=== PATIENT | female | born 1970 | race Caucasian/White ===

== ENCOUNTER → 2021-12-16 09:15 | Outpatient (BNVA) | payer OTHER, SELFPAY | PROVIDERS: Family Provider Family Medicine; PCP Family Medicine Adult Medicine; Referring Provider Family Medicine Adult Medicine; Visit Provider Podiatrist Foot & Ankle Surgery | DX: M72.2 Plantar fascial fibromatosis (principal); M24.572 Contracture, left ankle; M24.571 Contracture, right ankle; B35.1 Tinea unguium | CPT/HCPCS: 73630 ==

== ENCOUNTER 2021-12-16 13:57 | Outpatient (CLI) | payer OTHER, SELFPAY | END 2021-12-16 13:58 | disposition home or self-care (01) | LOC: SPT 13:59 | PROVIDERS: Family Provider Family Medicine; PCP Family Medicine Adult Medicine; Visit Provider Podiatrist Foot & Ankle Surgery | DX: Z46.89 Encounter for fitting and adjustment of other specified devices (principal); M72.2 Plantar fascial fibromatosis | CPT/HCPCS: 97760; L4397 ==

== ENCOUNTER 2022-02-24 11:53 | Day surgery (SDC) | payer OTHER, SELFPAY ==
[2022-02-23 14:50] VITALS: BMI 28.1
[2022-02-24 12:13] VITALS: BP 143/82; PULSE 66; RESP 16; TEMP 36.1; O2SAT 97
[2022-02-24] MEDS: CELEcoxib 200 mg Capsule 400 MG PO (12:38)
[2022-02-24] MEDS: gabapentin 300 mg Capsule PO (12:39)
[2022-02-24] MEDS: sodium chloride 0.9% 1,000 ML 30 ML IV (12:39)
--- NOTE | 2022-02-24 13:16 | ANES.PREANE2 ---
Pre-Anesthetic Assessment Height/Weight: Height 1.7 m Weight 81.647 kg Temp Pulse Resp BP Pulse Ox O2 Del Method 97 F L 66 16 143/82 97 02/24/22 12:13 02/24/22 12:13 02/24/22 12:13 02/24/22 12:13 02/24/22 12:13 02/24/22 12:17 Preop Diagnosis: Right foot plantar fasciosis Operation Date: 02/24/22 14:05 Proposed Procedures p Right foot endoscopic plantar fasciotomy CPT 07993 M72.2(Right) - Sinan Gonzales DPM Familial anesthetic complications: None Was Beta Albert taken within 24 hours: N/A Was Clonidine taken within 24 hours: N/A Last intake: Intake Last Liquid Date 02/23/22 Last Liquid Time 20:30 Last Solid Date 02/23/22 Last Solid Time 20:30 Social Tobacco and No alcohol Exam alert, oriented x 3, clear to auscultation bilaterally and regular rate & rhythm Airway Mallampati: Class II Dentition: chipped Neuropsych Anxiety Anesthetic Plan ASA status: 2 Anesthesia: MAC Risk of > 500 ml blood loss (7ml/kg in children): No Medications/Allergies Home Medications Medication Instructions Recorded Confirmed Last Taken Type citalopram 20 mg tablet (Celexa) 20 mg PO DAILY PRN mental health 08/18/21 02/23/22 02/23/22 Rx #90 tabs hydroxyzine HCl 25 mg tablet 25 mg PO .hs PRN anxiety/sleep #90 08/18/21 02/23/22 02/23/22 Rx tabs night splint #1 ea 12/16/21 02/23/22 Unknown Rx hydrocodone 5 mg-acetaminophen 325 1 tab PO Q6H PRN pain 3 days #12 02/24/22 Unknown Rx mg tablet tabs Allergies Allergy/AdvReac Type Severity Reaction Status Date / Time No Known Allergies Allergy Verified 02/23/22 14:50 Current Medications Generic Name Dose Route Start Last Admin Trade Name Freq PRN Reason Stop Dose Admin Sodium Chloride 1,000 mls @ 30 mls/hr 02/24/22 12:15 02/24/22 12:39 Sodium Chloride 0.9% IV 02/25/22 12:14 30 mls/hr .Q24H LIA Administration PFSH Anesthesia Medical History Anxiety Depression Heel pain, chronic Ulnar nerve neuropathy Family History Mother CAD (coronary artery disease) Grandmother Dementia Other Gout Hyperlipidemia Hypertension Social History Smoking and tobacco status: current every day smoker Alcohol intake: never Marital status: Single Current occupational status: employed Data Anesthesia Cardiac Studies: No Data to Display
--- NOTE | 2022-02-24 14:03 | W.PM.OPSUD ---
Surgery/Procedure H&P Update DATE OF PROCEDURE: February 24, 2022 DATE H&P PERFORMED: 02/09/22 CHANGES TO PREVIOUS DOCUMENTATION: no changes PREOP DIAGNOSIS: Right foot plantar fasciosis PLANNED PROCEDURE: Operation Date: 02/24/22 14:05 Proposed Procedures p Right foot endoscopic plantar fasciotomy CPT 28727 M72.2(Right) - Sinan Gonzales DPM
[2022-02-24] MEDS: ceFAZolin 2,000 MG in sodium chloride 0.9% (plus) 50 ML 100 MG IV (14:16)
[2022-02-24 14:52] VITALS: BP 110/64; PULSE 59; RESP 14; TEMP 36.7; O2SAT 97
[2022-02-24 14:55] VITALS: BP 111/66; PULSE 57; RESP 12; O2SAT 98
[2022-02-24 15:00] VITALS: BP 120/72; PULSE 62; RESP 12; O2SAT 96
[2022-02-24 15:15] VITALS: BP 147/80; PULSE 56; RESP 18; TEMP 36.2; O2SAT 98
[2022-02-24] MEDS: HYDROcodone-acetaminophen 5-325 mg Tablet 1 TAB PO (15:53)
--- NOTE | 2022-02-24 15:57 | ANE.PACU2 ---
Inpatient post-anesthesia follow up: Airway intact: Yes Vital signs: Temperature 98.0 F Pulse Rate 62 Respiratory Rate 12 Blood Pressure 120/72 Pulse Oximetry 96 Oxygen Delivery Me thod Room Air Oxygen Flow Rate Fraction of Inspir ed Oxygen Hydration adequate: Yes Nausea and vomiting: No Pain level: 1 Mental status: Baseline
[2022-02-24 15:59] VITALS: BP 142/76; PULSE 58; RESP 18; TEMP 36.2; O2SAT 97
--- NOTE | 2022-02-24 18:15 | P.OP_ITS ---
Operative Report Date of procedure: February 25, 2022 Pre-op diagnosis: Preop Diagnosis Right foot plantar fasciosis Post-op diagnosis: Same Post-op findings: Thickened medial band of plantar fascial right foot Procedure done: Right foot endoscopic plantar fasciotomy CPT 52634 Implants: None Surgeon: Dr. Sinan Gonzales, Jasper.P.MAlicia Estimated blood loss: Less than 10 cc 14 minutes Complications: None Findings: See above Procedure: Patient is a 51-year-old female that has a history of right foot chronic plantar fasciitis. The patient has had the aforementioned chief complaint for some time. Conservative treatment measures have been attempted and the patient has opted for surgical intervention at this time. A lengthy discussion regarding the procedure, including risks and complications has been had with the patient and is noted in the recent clinic note. Written and verbal consent have been obtained. All patient questions have been answered to the patient?s satisfaction. No written or verbal guarantees have been given or implied. The patient has been NPO since midnight. The history has been reviewed and the history and physical is current. The signed consent was confirmed and placed in the patient chart. Patient imaging has been reviewed and is consistent with the diagnosis. Under mild sedation, the patient was brought into the operating room and placed on the table in the supine position. IV antibiotics were given by the anesthesia team as preoperative surgical prophylaxis. IV sedation was then performed by the anesthesiateam. A local field block was then performed using 0.5% Marcaine plain. A pneumatic tourniquet was then placed about the right ankle. The operative extremity was then prepped and draped in the usual fashion. The extremity was then elevated and exsanguinated before the tourniquet was inflated to 250 mmHg. After inflation, the following procedure was then perform ed. Attention was directed to the right foot where a stab incision was made to the medial aspect of the heel just distal to the medial calcaneal tubercle. Mosquito hemostat was used to bluntly dissect down to the level of the plantar fashion. Dissection was carried out on the inferior aspect of the plantar fashion across the plantar aspect of the foot. Next a soft tissue elevator was inserted into the incision to further free up the plantar soft tissues. Next a trocar and cannula were inserted into the medial incision along the inferior aspect of the plantar fascial. They were pushed through the foot and used to tent the skin on the lateral aspect of the foot. A #15 blade was then used to make a small stab incision over this area. The trocar and cannula were passed through and through. The trocar was removed and multiple contact applicators were passed to the cannula. Next the arthroscope was inserted into the lateral portal of the cannula. The plantar fascial was clearly visualized. A triangle blade was then inserted into the medial portal and used to puncture the medial band of the plantar fascia. Next, the retrograde hook was inserted into the medial incision and used to complete the resection of the medial band of the plantar fascial. The flexor digitorum brevis muscle belly was clearly visualized. The plantar fascia was noted to be thickened from longstanding plantar fasciitis. Camera was removed and the site was irrigated with copious amounts of sterile saline. The trocar was reinserted into the cannula and the trocar and cannula were removed together. Next, attention was directed to closure. Incision sites were closed with 4-0 nylon in horizontal mattress fashion. The tourniquet was let down good hyperemic response was noted to all digits of the right foot. The incision sites were dressed with Xeroform, 4 x 4 gauze, Kerlix and Coban. The patient tolerated the procedure and anesthesia well and without complication. The patient was transported from the operating room to the recovery room with vital signs stable and vascular status intact to all digits of the right foot. The patient was given both written and verbal instructions to remain weightbearing as tolerated to the operative extremity, to keep dressings/splint clean, dry and intact and to take pain medication as directed. The patient will follow-up in the outpatient setting at their scheduled appointment. The patient was discharged with my personal number and was instructed to call if any questions or issues should arise. They were discharged home once anesthesia criteria was met.
== END 2022-02-24 16:15 | disposition home or self-care (01) ==
PROVIDERS: Family Provider Family Medicine; PCP Family Medicine Adult Medicine; Visit Provider Podiatrist Foot & Ankle Surgery
PROC: (CPT 29893; principal; 2022-02-24 14:05)
DX: M72.2 Plantar fascial fibromatosis (principal); F17.210 Nicotine dependence, cigarettes, uncomplicated
CPT/HCPCS: 29893; J0690; J2250; J2704; J3010; J3490; J7030

== ENCOUNTER → 2022-07-07 16:06 | Outpatient (BNVA) | payer OTHER, SELFPAY | PROVIDERS: Family Provider Family Medicine; PCP Family Medicine Adult Medicine; Visit Provider Podiatrist Foot & Ankle Surgery | DX: M79.671 Pain in right foot (principal) | CPT/HCPCS: 73630 ==

== ENCOUNTER → 2022-08-03 13:42 | Outpatient (BNVA) | payer OTHER, SELFPAY | PROVIDERS: Family Provider Family Medicine; PCP Family Medicine Adult Medicine; Visit Provider Podiatrist Foot & Ankle Surgery | DX: M25.50 Pain in unspecified joint (principal) | CPT/HCPCS: 36415; 85651; 86140; 86160; 86162; 86200; 86235; 86255; 86376; 86431 ==

== ENCOUNTER → 2022-08-17 15:09 | Outpatient (BNVA) | payer OTHER, SELFPAY | PROVIDERS: Family Provider Family Medicine; PCP Family Medicine Adult Medicine; Visit Provider Family Medicine Adult Medicine | DX: M25.50 Pain in unspecified joint (principal); G56.20 Lesion of ulnar nerve, unspecified upper limb; M79.671 Pain in right foot; F41.9 Anxiety disorder, unspecified; M25.571 Pain in right ankle and joints of right foot; M79.672 Pain in left foot; F32.A Depression, unspecified | CPT/HCPCS: 80053; 84550; 85025 ==

== ENCOUNTER → 2022-11-07 08:21 | Outpatient (BNVA) | payer OTHER, SELFPAY | PROVIDERS: Family Provider Family Medicine; PCP Family Medicine Adult Medicine; Visit Provider Nurse Practitioner Family | DX: M25.532 Pain in left wrist; M25.531 Pain in right wrist; G89.29 Other chronic pain; M54.2 Cervicalgia | CPT/HCPCS: 73110 ==

== ENCOUNTER → 2023-07-20 11:34 | Outpatient (BNVA) | payer OTHER, SELFPAY | PROVIDERS: Family Provider Family Medicine; PCP Family Medicine Adult Medicine; Visit Provider Internal Medicine Rheumatology | DX: Z79.899 Other long term (current) drug therapy (principal); M19.90 Unspecified osteoarthritis, unspecified site; M45.6 Ankylosing spondylitis lumbar region | CPT/HCPCS: 36415; 72100; 72202; 73130; 80076; 82085; 82306; 82550; 82565; 83520; 85025; 85651; 86140; 86812 ==

== ENCOUNTER 2024-01-26 07:16 | Outpatient (CLI) | payer OTHER, SELFPAY ==
--- NOTE | 2024-01-26 07:23 | MM_ITS ---
WS: [id number] Bilateral screening 3D tomosynthesis digital mammogram, 01/26/2024 7:33 AM Clinical Data: SCREENING Comparison: None. Findings: There is an ill-defined area in the superior aspect of the right breast measuring 1.5 cm. It has an i ll-defined border and no associated calcifications. The left breast is normal. No spiculated masses or clustered calcifications are seen. There are no secondary signs of carcinoma . MM/MM scr BI tomosynthesis [id number] Impression: 1. Ill-defined area which may represent asymmetric breast tissue in the upper a spect of the right breast and recommend compression views in the MLO projection , ML image and ultrasound of the right breast. 2. The left breast is normal. BIRADS: 0 - Incomplete: Need additional imaging evaluation. FOLLOW UP: See Report DENSITY: There are scattered areas of fibroglandular density. The CAD spot checker was used
== END 2024-01-26 07:17 | disposition home or self-care (01) ==
LOC: RAD 07:16
PROVIDERS: Family Provider Family Medicine; PCP Family Medicine Adult Medicine; Visit Provider Nurse Practitioner Family
DX: Z12.31 Encounter for screening mammogram for malignant neoplasm of breast (principal); N63.12 Unspecified lump in the right breast, upper inner quadrant
CPT/HCPCS: 77063; 77067

== ENCOUNTER 2024-02-03 07:48 | Emergency (ER) | payer OTHER, SELFPAY ==
[2024-02-03] VITALS (9 sets, daily range): BP systolic 112–148; BP diastolic 73–96; PULSE 92–108; RESP 16–21; TEMP 36.8; O2SAT 94–100; BMI 34.4
--- NOTE | 2024-02-03 07:57 | XRR_ITS ---
PROCEDURE INFORMATION: Exam: XR Chest Exam date and time: 02/03/2024 8:20 AM Age: 53 years old Clinical indication: Cough and dyspnea; Additional info: Dyspnea/cough TECHNIQUE: Imaging protocol: Radiologic exam of the chest. Views: 1 view. COMPARISON: ES surgery / GI images 02/24/2022 2:58 PM FINDINGS: Lungs: Unremarkable. No consolidation. Pleural spaces: Unremarkable. No pleural effusion. No pneumothorax. Heart/Mediastinum: Unremarkable. No cardiomegaly. Bones/joints: Mild degenerative disease of the left acromioclavicular joint. XR/XR chest 1V portable [id number] IMPRESSION: No acute cardiopulmonary process.
--- NOTE | 2024-02-03 07:59 | ECG_ITS ---
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
[2024-02-03 08:25] LABS: Basophils # 0.1 10^3/uL (0.0-0.1); Basophils % 0.6 %; Eosinophils % 0.2 %; Hematocrit 48.4 % (36-47); Lymphocytes # 1.6 10^3/uL (0.8-4.8); Lymphocytes % 12.5 %; Mean Corpuscular HGB Conc 33.9 g/dL (30-55); Mean Corpuscular Hemoglobin 31.9 pg (27-33); Mean Corpuscular Volume 94.2 fl (85-98); Mean Platelet Volume 9.1 fL (7.4-10.4); Monocytes # 1.2 10^3/uL (0.2-0.9); Monocytes % 9.4 %; Neutrophils # 9.62 10^3/uL (1.8-7.7); Neutrophils % 76.7 %; Nucleated Red Blood Cells % 0 %; Platelet Count 378 10^3/cmm (157-399); Red Blood Count 5.14 10^6/uL (3.85-5.65); White Blood Count 12.52 10^3/uL (3.29-11.43)
[2024-02-03 08:48] LABS: Alanine Aminotransferase 19 U/L (0-33); Albumin Level 4.6 g/dL (3.5-5.2); Alkaline Phosphatase 113 U/L (35-105); Anion Gap 21.8 (5-19); Aspartate Amino Transferase 18 U/L (0-32); Blood Urea Nitrogen 16 mg/dL (6-20); Calcium 9.8 mg/dL (8.5-10.5); Carbon Dioxide 23 mmol/L (22-29); Chloride 93 mmol/L (98-107); Creatinine Clr Calc Pharmacy 72.6051; Globulin 3.6 g/dL (1.3-4.6); Glomerular Filtration Rate 52.2 mL/min (90-130); Glucose 141 mg/dL (65-115); Osmolality Calculated 284 mOsm/kg (285-295); Sodium 135 mmol/L (136-145); Total Bilirubin 0.9 mg/dL (0.15-1.2); Total Protein 8.2 g/dL (6.6-8.7)
[2024-02-03 08:54] LABS: Covid PCR NEGATIVE (Negative); Influenza A NEGATIVE (Negative); Influenza B NEGATIVE (Negative); Respiratory Syncytial Virus Ce NEGATIVE (Negative)
[2024-02-03 08:55] LABS: Potassium 2.8 mmol/L (3.5-5.1)
[2024-02-03 09:01] LABS: Bilirubin Urine 2+ (Negative); Blood Urine Negative (Negative); Glucose Urine UA Trace (Normal); Ketones Urine Trace (Negative); Leukocyte Esterase Urine 1+ (Negative); Nitrate Urine Positive (Negative); Protein Urine 3+ (Negative); Specific Gravity, Urine 1.027 (1.005-1.030); Urine Appearance Turbid (CLEAR); Urine Color Dark Yellow (Yellow); pH Urine 5.5 (5-7)
[2024-02-03 09:06] LABS: Add Urine Microscopic? YES; Bacteria Urine 4+ /hpf; Hyaline Casts Urine 380.27 /lpf; Squamous Epithelial Cell Urine 51-100 /hpf (0-5); WBC Urine 51-100 /hpf (0-5)
[2024-02-03 09:19] LABS: UA Slide Review UA Slide Review Perf
[2024-02-03 09:20] LABS: Mucus Urine 2+ /hpf; Trichomonas Urine 1+ /hpf
[2024-02-03 09:21] LABS: Add Urine Culture? No
[2024-02-03] MEDS: potassium chloride oral liq 20 mEq/15 mL UDC 60 MEQ PO (09:28)
[2024-02-03] MEDS: ondansetron 2 mg/ML SDV 2 mL 4 MG IVP (09:30)
[2024-02-03] MEDS: cefTRIAXone 2,000 mg SDV 2000 MG IVP (09:46)
--- NOTE | 2024-02-03 09:48 | ED_ITS ---
HPI - SOB/Dyspnea 2 General: Chief Complaint: Shortness of Breath/Dyspnea Stated Complaint: N/V, SOB Time Seen by Provider: 02/03/24 07:57 History of Present Illness: HPI Narrative: 53-year-old female who presents emergenc y room complaining of nausea vomiting little bit of shortness of breath been going on the last 2 days this morning when she woke up she was more short of breath subjective report of fever but has not tested it. Denies any chest or abdominal pain denies any flank pain no hemoptysis Associated symptoms: Deny abdominal pain, chest pain or fever(s) Related Data Home Medications Medication Instructions Recorded Confirmed gabapentin 100 mg capsule See Rx Instructions .Route 02/03/24 02/03/24 .COMPLEX chronic pain hydroxyzine HCl 25 mg tablet 12.5 - 25 mg PO Q6H PRN 02/03/24 02/03/24 anxiety/sleep Previous Rx's Medication Instructions Recorded night splint #1 ea 12/16/21 custom orthotics #1 ea 03/31/23 citalopram 40 mg tablet 40 mg PO DAILY mental health #90 09/25/23 tabs hydroxychloroquine 200 mg tablet 200 mg PO BID #180 tabs 11/27/23 leflunomide 20 mg tablet 20 mg PO DAILY #30 tabs 11/27/23 prednisone 5 mg tablet 5 mg PO BID #60 tabs 11/27/23 baclofen 10 mg tablet 10 mg PO TID PRN muscle spasm #90 01/15/24 tabs ciprofloxacin HCl 500 mg tablet 500 mg PO BID #14 tabs 02/03/24 (Cipro) ondansetron HCl 4 mg tablet 4 mg PO Q6H PRN nausea and 02/03/24 vomiting #20 tabs Allergies Allergy/AdvReac Type Severity Reaction Status Date / Time No Known Allergies Allergy Verified 02/03/24 08:02 Review of Systems 2 Const: Denies: fever(s) or chills Card: Denies: chest pain Resp: Denies: dyspnea GI: Denies: abdominal pain : Denies: dysuria, urinary frequency or urinary urgency Musc: Denies: neck pain or back pain Skin/Breast: Denies: rash PFSH ED 2 PFSH: Medical History Seronegative rheumatoid arthritis of both hands Cervical dysplasia Immunization counseling High risk medication use Inflammatory arthritis Muscle spasms of both lower extremities Arthralgia of multiple joints Onychomycosis Equinus contracture of right ankle Equinus contracture of left ankle Ulnar nerve neuropathy Heel pain, chronic Depression Anxiety Surgical History History of hysterectomy with bilateral oophorectomy H/O LEEP Family History Mother CAD (coronary artery disease) Grandmother Dementia Other Gout Hyperlipidemia Hypertension Social History Smoking and tobacco/nicotine status: never used tobacco/nicotine Alcohol intake: never Substance/Drug Use: current Substance/Drug use frequency: Special occassions/opportunity only Marital status: Single Current occupational status: employed Physical Exam 2 Const: COMMON NORMALS: no acute distress GENERAL APPEARANCE: cooperative and comfortable ORIENTATION/CONSCIOUSNESS: Yes awake, Yes oriented to person, Yes oriented to place and Yes oriented to time HENMT: COMMON NORMALS: normocephalic, atraumatic and hearing grossly normal bilaterally HEAD & SCALP: normocephalic and atraumatic Resp: COMMON NORMALS: normal respiratory effort, No retractions, No use of accessory muscles and clear to auscultation bilaterally AUSCULTATION: clear to auscultation bilaterally Cardio: COMMON NORMALS: regular rate, regular rhythm and No murmurs present (Cardio) RATE: regular rate RHYTHM: regular rhythm GI: COMMON NORMALS: Soft to palpation and No hepatosplenomegaly present A USCULTATION: Yes normoactive bowel sounds PALPATION: Yes Soft to palpation, No Tenderness to palpation present (GI), No Guarding due to palpation present (GI) and Yes No hepatosplenomegaly present Extremity: COMMON NORMALS: normal to inspection, capillary refill normal, no clubbing, cyanosis or edema, no calf tenderness and no pedal edema Neuro: SENSORIUM/ORIENTATION: Yes oriented to person, Yes oriented to place and Yes oriented to time Skin: COMMON NORMALS: no rashes or lesions noted GENERAL SKIN EXAM: no rashes or lesions noted Course 2 Vital Signs: Vital signs: Vital Signs Temperature 98.3 F 02/03/24 07:51 Pulse Rate 102 H 02/03/24 12:00 Respiratory Rate 18 02/03/24 12:00 Blood Pressure 121/74 02/03/24 12:00 Pulse Oximetry 94 02/03/24 12:00 Oxygen Delivery Me thod Room Air 02/03/24 12:00 MDM - SOB/Dyspnea Medical Decision Making Hypokalemia improved with p.o. supplementation recheck is within normal limits. Patient has persistent nausea vomiting dysfunction complained of some shortness of breath chest x-ray and exam are normal RSV COVID flu negative. UA did show cystitis. Patient is not intoxicated. Vital signs stable she is feeling better we will discharge the patient home she was given 2 g of ceftriaxone here started on Cipro tomorrow ondansetron as needed Medical Records I reviewed the patient's medical records. Lab Data I reviewed the patient's lab results. 02/03/24 08:18 02/03/24 10:51 Labs/Radiology: Radiology Impressions Chest X-Ray 02/03/24 07:57 IMPRESSION: No acute cardiopulmonary process. Laboratory Results WBC 12.52 10^3/uL (3.29-11.43) H 02/03/24 08:18 RBC 5.14 10^6/uL (3.85-5.65) 02/03/24 08:18 Hgb 16.40 g/dL (11.27-16.99) 02/03/24 08:18 Hct 48.4 % (36-47) H 02/03/24 08:18 MCV 94.2 fl (85-98) 02/03/24 08:18 MCH 31.9 pg (27-33) 02/03/24 08:18 MCHC 33.9 g/dL (30-55) 02/03/24 08:18 RDW 14.0 % (12.1-15.1) 02/03/24 08:18 Plt Count 378 10^3/cmm (157-399) 02/03/24 08:18 MPV 9.1 fL (7.4-10.4) 02/03/24 08:18 Neut % (Auto) 76.7 % 02/03/24 08:18 Lymph % (Auto) 12.5 % 02/03/24 08:18 [place] % (Auto) 9.4 % 02/03/24 08:18 Eos % (Auto) 0.2 % 02/03/24 08:18 Baso % (Auto) 0.6 % 02/03/24 08:18 Neut # (Auto) 9.62 10^3/uL (1.8-7.7) H 02/03/24 08:18 Lymph # (Auto) 1.6 10^3/uL (0.8-4.8) 02/03/24 08:18 [place] # (Auto) 1.2 10^3/uL (0.2-0.9) H 02/03/24 08:18 Eos # (Auto) 0.0 10^3/uL (0.0-0.8) 02/03/24 08:18 Baso # (Auto) 0.1 10^3/uL (0.0-0.1) 02/03/24 08:18 Nucleated RBC % (auto) 0 % 02/03/24 08:18 Nucleated RBCs # 0.0 /100WBC 02/03/24 08:18 Sodium 134 mmol/L (136-145) L 02/03/24 10:51 Potassium 3.8 mmol/L (3.5-5.1) 02/03/24 10:51 Chloride 96 mmol/L (98-107) L 02/03/24 10:51 Carbon Dioxide 23 mmol/L (22-29) 02/03/24 10:51 Anion Gap 18.8 (5-19) 02/03/24 10:51 BUN 15 mg/dL (6-20) 02/03/24 10:51 Creatinine 0.8 mg/dL (0.5-0.9) 02/03/24 10:51 GFR Calculation 75.3 mL/min (90-130) L 02/03/24 10:51 Glucose 98 mg/dL (65-115) 02/03/24 10:51 Calculated Osmolality 279 mOsm/kg (285-295) L 02/03/24 10:51 Calcium 9.4 mg/dL (8.5-10.5) 02/03/24 10:51 Total Bilirubin 0.9 mg/dL (0.15-1.2) 02/03/24 08:18 AST 18 U/L (0-32) 02/03/24 08:18 ALT 19 U/L (0-33) 02/03/24 08:18 Alkaline Phosphatase 113 U/L (35-105) H 02/03/24 08:18 Total Protein 8.2 g/dL (6.6-8.7) 02/03/24 08:18 Albumin 4.6 g/dL (3.5-5.2) 02/03/24 08:18 Globulin 3.6 g/dL (1.3-4.6) 02/03/24 08:18 Urine Color Dark yellow (Yellow) A 02/03/24 08:31 Urine Appearance Turbid (CLEAR) A 02/03/24 08:31 Urine pH 5.5 (5-7) 02/03/24 08:31 Ur Specific [place] 1.027 (1.005-1.030) 02/03/24 08:31 Urine Protein 3+ (Negative) A 02/03/24 08:31 Urine Glucose (UA) Trace (Normal) H 02/03/24 08:31 Urine Ketones Trace (Negative) 02/03/24 08:31 Urine Blood Negative (Negative) 02/03/24 08:31 Urine Nitrate Positive (Negative) A 02/03/24 08:31 Urine Bilirubin 2+ (Negative) H 02/03/24 08:31 Urine Urobilinogen 1.0 mg/dL (Negative) 02/03/24 08:31 Ur Leukocyte Esterase 1+ (Negative) A 02/03/24 08:31 Urine RBC 3-5 /hpf (0-2) 02/03/24 08:31 Urine WBC 51-100 /hpf (0-5) H 02/03/24 08:31 Ur Squamous Epith Cells 51-100 /hpf (0-5) 02/03/24 08:31 Amorphous Sediment Not Reportable 02/03/24 08:31 Urine Bacteria 4+ /hpf (NONE) H 02/03/24 08:31 Hyaline Casts 380.27 /lpf 02/03/24 08:31 Urine Mucus 2+ /hpf 02/03/24 08:31 Urine Trichomonas 1+ /hpf H 02/03/24 08:31 Coronavirus (PCR) Negative (Negative) 02/03/24 08:05 Influenza A (PCR) Negative (Negative) 02/03/24 08:05 Influenza Type B (PCR) Negative (Negative) 02/03/24 08:05 RSV (PCR) Negative (Negative) 02/03/24 08:05 All radiology interpretation(s) finalized by discharge Discharge Plan Discharge Patient Disposition: Home Clinical Impression: Cystitis Condition: Stable Prescriptions: New ondansetron HCl 4 mg tablet 4 mg PO Q6H PRN (Reason: nausea and vomiting) Qty: 20 0RF ciprofloxacin HCl [Cipro] 500 mg tablet 500 mg PO BID Qty: 14 0RF No Action (DME) night splint 8 See Rx Instructions .Route .MEDSUPPLY Qty: 1 0RF Rx Instructions: As directed (DME) custom orthotics See Rx Instructions .Route .MEDSUPPLY Qty: 1 0RF Rx Instructions: As directed leflunomide 20 mg tablet 20 mg PO DAILY Qty: 30 4RF prednisone 5 mg tablet 5 mg PO BID Qty: 60 5RF hydroxychloroquine 200 mg tablet 200 mg PO BID Qty: 180 1RF citalopram 40 mg tablet 40 mg PO DAILY Qty: 90 1RF baclofen 10 mg tablet 10 mg PO TID PRN (Reason: muscle spasm) Qty: 90 3RF hydroxyzine HCl 25 mg tablet 12.5 - 25 mg PO Q6H PRN (Reason: anxiety/sleep) gabapentin 100 mg capsule See Rx Instructions .ROUTE .COMPLEX Rx Instructions: Take 1 tablet by mouth in the morning, 1 tablet at mid day and 2 tablets at bedtime. Discharge Orders: Discharge ED (Routine); Ordered 02/03/24 Ordered By: Jamshid Rice Referrals: Servando Dewitt MD [Primary Care Provider] - Discharge Diet: Clear Liquid Discharge Activity: Increase activity as tolerated Patient Instructions: Opioid Safety, Pain Management Activity Restrictions/Additional Instructions: Thank you for choosing [facility] for your healthcare needs today. It is very important that you follow up as instructed or that you return to the Emergency Department should you have concerns or if your condition changes or worsens in any way. You are seen in the emergency for nausea and vomiting. Chest x-ray is normal. Swab for COVID flu and RSV were negative. He did have a bladder infection. We gave the initial antibiotic in the emergency room and recommend to start oral antibiotics tomorrow 500 mg twice a day for 7 days. Follow-up with your primary care doctor if not improving. Recommend clear liquid diet for the next 24 to 48 hours. 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
[2024-02-03 11:24] LABS: Anion Gap 18.8 (5-19); Blood Urea Nitrogen 15 mg/dL (6-20); Calcium 9.4 mg/dL (8.5-10.5); Carbon Dioxide 23 mmol/L (22-29); Chloride 96 mmol/L (98-107); Glomerular Filtration Rate 75.3 mL/min (90-130); Glucose 98 mg/dL (65-115); Osmolality Calculated 279 mOsm/kg (285-295); Potassium 3.8 mmol/L (3.5-5.1); Sodium 134 mmol/L (136-145)
== END 2024-02-03 12:15 | disposition home or self-care (01) ==
PROVIDERS: Emergency Provider Family Medicine; PCP Family Medicine Adult Medicine
DX: N30.90 Cystitis, unspecified without hematuria (principal); Z11.52 Encounter for screening for COVID-19
CPT/HCPCS: 0241U; 36415; 71045; 80048; 80053; 81001; 85025; 93005; 96374; 96375; 99285; J0696; J2405

== ENCOUNTER 2024-02-20 14:29 | Outpatient (CLI) | payer OTHER, SELFPAY ==
--- NOTE | 2024-02-20 14:34 | MM_ITS ---
WS: [id number] VIEWS: MLO, CC, and ML views of the RIGHT breast. 3D digital tomosynthesis is also included in this exam. Comparison made with prior exam of 01/26/2024. Findings: There are scattered areas of fibroglandular density. Compression spot images and 3D tomography of the RIGHT breast demonstrated no obvious discrete suspic ious mass or secondary malignant finding. MM/MM diag RT tomosynthesis [id number] Impression: BI-RADS: 0 - Incomplete: Need additional imaging evaluation. FOLLOW-UP: Need Additional Imaging This mammogram was also analyzed by the Computer Aided Detection System R2 Imag e Risk Management Professional.
--- NOTE | 2024-02-20 14:34 | US_ITS ---
WS: [id number] Exam: US breast RT limited* [id number] Date/Time of Exam: 02/20/2024 3:19 PM Reason For Exam: ABNORMAL MAMMOGRAM Regional ultrasound of the 12 o'clock position in the RIGHT breast at mid depth level shows no sign o f suspicious solid nodule or mass. No cysts were identified. Recommendations: Continue yearly screening mammography. US/US breast RT limited* [id number] IMPRESSION: 1. No suspicious ultrasound findings in the central RIGHT breast.
== END 2024-02-20 14:30 | disposition home or self-care (01) ==
PROVIDERS: PCP Family Medicine Adult Medicine; Visit Provider Nurse Practitioner Family
DX: R92.8 Other abnormal and inconclusive findings on diagnostic imaging of breast (principal); R92.323 Mammographic fibroglandular density, bilateral breasts
CPT/HCPCS: 76642; 77061; G0279

== ENCOUNTER → 2024-05-24 11:29 | Outpatient (BNVA) | payer OTHER, SELFPAY | PROVIDERS: PCP Family Medicine; Visit Provider Family Medicine | DX: R07.9 Chest pain, unspecified (principal); Z13.6 Encounter for screening for cardiovascular disorders; R94.31 Abnormal electrocardiogram [ECG] [EKG] | CPT/HCPCS: 80061; 84443 ==

== ENCOUNTER 2024-05-30 07:55 | Outpatient (CLI) | payer OTHER, SELFPAY ==
--- NOTE | 2024-05-30 | ECG_ITS ---
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 Interpretive Statements Lung unchanged pre/post procedure; Intraprocedure shortess of breath; Symptoms resoled by discharge PROCEDURE: At the baseline, the EKG revealed normal sinus rhythm with a normal ST Ts.. The baseline heart was 64 bpm with a blood pressue of 126/76 mm of Hg Lexiscan was infused over a period of 20 seconds. A total of 0.4 milligrams of Lexiscan was infused. The stress phase was continued for a total of 5 minutes. Heart rate at the end of the stress phase was 83 bpm with a blood pressure 131/99 mm of Hg. The EKG at the peak infusion revealed no significant changes. Sestamibi was injected 20 seconds after the Lexiscan infusion. Heart rate at the end of the recovery phase was 81 bpm with a blood pressure of 137/93 mm of Hg. CONCLUSION: 1. No significant EKG changes with the LexiScan infusion 2. No LexiScan induced chest pain or cardiac arrhythmia 3. Normal blood pressure and heart rate response 4. Sestamibi/sestamibi perfusion scan pending; see separate report. Electronically Signed On 05-31-2024 15:57:08 CDT by Loraine Marshall M.D. [email or web address]
--- NOTE | 2024-05-30 08:15 | NMCV_ITS ---
NM kalee perf SPECT r/s* [id number] Lore Verduzco Age: 53 Gender: F : 1970 Exam Date: 05/30/2024 08:57 Ordering Phys: Dina Velez MD Technologist: CLYDE Tilley Exam Location: [facility] [place] Indications: CP STRESS TEST Please see separate stress test report in [facility]any for full findings IMAGE PROTOCOL Rest/Stress 1 Lexiscan Day Radiopharmaceutical Dose (mCi) Administration Site Administered by Rest: Tc-99m 10.5 IV Amy Joiner, CAB STATION ATTENDANT Sestamibi Stress:Tc-99m 32.3 IV Amy Montalvogle, CAB STATION ATTENDANT Sestamibi Rest: 30-May-2024 60 Discovery 630 Stress: 30-May-2024 30 Discovery 630 0.4mg Lexiscan. Supine position only as patient was unable to lay prone. SPECT RESULTS Technical Quality: Good Raw Data Analysis: Breast attenuation Image Corrections: No attenuation or motion correction applied Summed Stress Score: 1 Summed Rest Score: 0 Summed Difference Score: 1 PERFUSION FINDINGS A small area of slightly decreased tracer uptake was noted in the apical lateral segment. Reversibility was noted in this region. FUNCTIONAL RESULTS (calculated via Gated SPECT) Stress Image LV EF (%): 64 Stress EDV (mL):122 TID: 0.97 Stress ESV (mL):44 FUNCTIONAL FINDINGS: Segmental wall motion analysis revealing no gross wall motion abnormalities IMPRESSIONS 1. Myocardial perfusion imaging revealing small area of reversible defect in the apical lateral segment suggesting ischemia in the distribution of the left circumflex artery. 2. Normal LV ejection fraction of 64%. 3. LV wall motion analysis revealing no gross wall motion abnormalities. 4. LV volume, upper limit of normal. No similar previous studies are available for comparison Dr Loraine Marshall MD [facility] (Electronically Signed) Final Date: 30 May 2024 17:21 S
[2024-05-30 08:22] VITALS: BMI 35.2
[2024-05-30 09:24] VITALS: BP 137/93; PULSE 79
[2024-05-30] MEDS: regadenoson 0.4 Mg/5 ml Syringe IVP (09:24)
== END 2024-05-30 07:56 | disposition home or self-care (01) ==
LOC: RAD 08:19 → CDL 08:22
PROVIDERS: PCP Family Medicine; Visit Provider Family Medicine
DX: R07.9 Chest pain, unspecified (principal); R94.31 Abnormal electrocardiogram [ECG] [EKG]; R93.1 Abnormal findings on diagnostic imaging of heart and coronary circulation
CPT/HCPCS: 36415; 78452; 93017; 96374; A9500; J2785

== ENCOUNTER → 2024-07-15 15:30 | Outpatient (BNVA) | payer OTHER, SELFPAY | PROVIDERS: PCP Family Medicine; Visit Provider Internal Medicine Rheumatology | DX: Z79.899 Other long term (current) drug therapy (principal) | CPT/HCPCS: 36415; 80076; 82565; 85025; 85651; 86140 ==

== ENCOUNTER 2024-07-17 06:07 | Outpatient (CLI) | payer OTHER, SELFPAY ==
--- NOTE | 2024-07-17 06:30 | USCV_ITS ---
Lore Verduzco Age: 53 Gender: F : 1970 Exam Date: 07/17/2024 06:24 Ordering Phys: Everardo Ziegler MD ([email or web address]) Technologist: Exam Location: [facility] [place] Indication: pre op clearance BP: 135 / 80 HR: 66 Rhythm: Sinus Technical Quality: Adequate MEASUREMENTS (Male / Female) Normal Values 2D ECHO LV Diastolic Diameter PLAX 4.0 cm 4.2 - 5.9 / 3.9 - 5.3 cm IVS Diastolic Thickness 1.2 cm 0.6 - 1.0 / 0.6 - 0.9 cm IVS Systolic Thickness 1.6 cm LVPW Diastolic Thickness 1.6 cm 0.6 - 1.0 / 0.6 - 0.9 cm LVPW Systolic Thickness 1.8 cm LVOT Diameter 2.1 cm LV Ejection Fraction 2D Teich 65.8 % LV Ejection Fraction MOD 4C 61.0 % LV Ejection Fraction MOD 2C 74.4 % LV Ejection Fraction 2C AL 74.7 % LA Diameter 3.3 cm RA Systolic Volume 4C AL 40.2 ml RA Systolic Volume 4C MOD 37.7 ml LA Sys Volume AL 45.0 cm cubed LA Sys Volume Index AL 20.1 cm cubed/m squared Aorta at Sinotubular Diameter 2.8 cm M-MODE LA Ao Ratio MM 1.4 AV Cusp Separation MM 2.1 cm DOPPLER AV Peak Velocity 130.0 cm/s LVOT Peak Velocity 71.0 cm/s AV Area Cont Eq vti 1.7 cm squared AV Area Cont Eq pk 1.9 cm squared MV Peak Velocity 85.0 cm/s MV Area PHT 4.1 cm squared Mitral E to A Ratio 1.0 TV Peak Velocity 189.5 cm/s TR Peak Velocity 220.0 cm/s TR Peak Gradient 19.4 mmHg TV Peak E Velocity 91.0 cm/s PV Peak Velocity 91.0 cm/s FINDINGS Left Ventricle Normal left ventricular size, systolic function and wall thickness, with no regional wall motion abnormalities. Left ventricular ejection fraction is estimated at 60 %. Normal diastolic function. Right Ventricle The right ventricle is normal in size and function. Right Atrium The right atrium is normal in size. Left Atrium The left atrium is normal in size. Mitral Valve Moderately thickened mitral valve. No mitral valve stenosis. Mild mitral valve regurgitation. Aortic Valve Moderate aortic valve calcification. Mild aortic valve stenosis, mean gradient 3.5 mmHg, LJ 1.7 cm squared. Trace aortic valve regurgitation. Tricuspid Valve Structurally normal tricuspid valve without significant stenosis or regurgitation. Pulmonary artery systolic pressure is normal. Pulmonic Valve Structurally normal pulmonic valve without significant stenosis. There is no pulmonic regurgitation. Pericardium Normal pericardium without effusion. Aorta Normal ascending aorta dimension. IVC The inferior vena cava appears normal. CONCLUSIONS Normal left ventricular size, systolic function and wall thickness, with no regional wall motion abnormalities. Left ventricular ejection fraction is estimated at 60 %. Normal diastolic function. Moderate aortic valve calcification. Mild aortic valve stenosis, mean gradient 3.5 mmHg, LJ 1.7 cm squared. Trace aortic valve regurgitation. Moderately thickened mitral valve. No mitral valve stenosis. Mild mitral valve regurgitation. There is no pericardial effusion. Right atrial pressure is around 5 mm of mercury. Everardo Ziegler MD (Electronically Signed) Final Date: 01 Aug 2024 19:28 S
== END 2024-07-17 06:08 | disposition home or self-care (01) ==
LOC: RAD 06:12
PROVIDERS: PCP Family Medicine; Visit Provider Internal Medicine Cardiovascular Disease
DX: R06.02 Shortness of breath (principal); I34.0 Nonrheumatic mitral (valve) insufficiency; I35.8 Other nonrheumatic aortic valve disorders; I35.0 Nonrheumatic aortic (valve) stenosis
CPT/HCPCS: 93306

== ENCOUNTER 2024-07-18 08:24 | Outpatient (CLI) | payer OTHER, SELFPAY ==
[2024-07-18] VITALS (33 sets, daily range): BP systolic 111–168; BP diastolic 68–99; PULSE 61–88; RESP 11–24; TEMP 36.7–36.9; O2SAT 93–99; BMI 35.4; BMI 30.2
[2024-07-18] MEDS: diphenhydrAMINE 50 mg Capsule PO (08:55)
--- NOTE | 2024-07-18 09:00 | XACV_ITS ---
Exam Room: [facility] Ht: 170 cm Wt: 103 kg BSA: 2.24 m2 Gender: Female : 1970 Any Known Allergies: No known allergies Exam Priority: Routine Procedure(s): Procedure Description: Diagnostic procedure Procedure Description: PCI procedure Procedure Description: Drug Eluting Coronary Stent Procedure Description: PTCA Procedure Description: Miscellaneous Procedure Description: ACT Procedure Description: Coronary Angiography Karlie TODD; Diagnostic Cath Status: Elective Diagnostic Findings * Left Main has no disease. * Left Anterior Descending has no disease. * Circumflex has no disease. * Mid Right Coronary Artery: significant 80% stenosis, SOPHIA: 3 flow. * Coronary angiography shows right dominance. Interventional Findings * Mid Right Coronary Artery: 80% stenosis treated with a AB TREK 2.50X20 RX BALLOON, MDTina Anders GAURANG 3.5X30 MARCELINO, and MDTina HINOJOSA EUPHORA RX [id number] BALLOON. 0% residual stenosis, SOPHIA: 3 flow. Conclusions 1. There is significant coronary artery disease with one vessel disease. 2. The posterior, inferobasal, mid inferior nieto are hypokinetic. 3. Normal left ventricular systolic function. Ejection fraction of 60%. 4. Mid Right Coronary Artery was treated with a Balloon, Drug Eluting Stent, and Balloon. Recommendations * 1-Return to inpatient for close monitoring and routine cath care 2-Risk factor modification for secondary prevention 3-Statin and aspirin 81 mg life-long, if tolerated 4-Patient was pre-loaded with 600 mg of Plavix, continue Plavix 75mg p.o. daily for at least one year. We will assess at the end of one year again to continue if further or not 5-Continue optimal medical management 6-Follow up with Dr. Ziegler in four weeks and your primary care in 10 days. Diagnostic RX Recommendation: PCI w/o planned CABG Ventriculography Ejection Fraction: 60.0 % Pressures Phase:Rest AO : 172 / 84 ( 118 ) @ 12:09:00 PM 148 / 77 ( 107 ) @ 12:16:00 PM 176 / 86 ( 125 ) @ 12:23:00 PM 180 / 88 ( 128 ) @ 12:23:00 PM 158 / 73 ( 104 ) @ 12:37:00 PM 100 / 66 ( 83 ) @ 12:54:00 PM LV : 184 / -12 / 15 @ 12:21:00 PM 184 / -4 / 20 @ 12:22:00 PM 183 / -5 / 19 @ 12:23:00 PM Valves Phase:DefaultPhase AV : 6.0 @ 5:59:52 AM AV Mean Gradient: 7.0 @ 5:59:52 AM Clinical Evaluation EBL: 5mL-10mL Procedural Details Procedure Consent Obtained. Admit Source: Out Patient. Pre-Procedure Time Out. Identified patient by full name and date of as verbalized by the patient/guarantor. Does the consent match the physician's order: Yes. Accurate & Complete Informed Consent: Yes. Inpatient/Outpatient History & Physical on Chart: Yes. If H&P is completed, is and addenduem needed: No; If yes, is the addendum complete: N/A. Visualize and Verify Site with Patient/Guarantor: N/A. Relevant Radiology Images available: Yes. The risks, benefits, and alternatives of sedation and/or procedure were discussed by physician. The patient agrees to continue. Procedure started. [facility] Clinical Fraility Score: 3: Managing Well. Meat Inspector Indications: Worsening Angina. Chest Pain Symptom Assessment: Typical Angina Symptoms. Correct patient, site and procedure confirmed by cath team. Current diagnosis: Chest Pain, Abnormal stress test. PERRLA. Strong, equal hand stock transfer clerk bilaterally. Lungs clear x 5 lobes. IV Site on Arrival: 20 gauge in the right anticubital. IV Fluids: 0.9% NaCl at KVO. 0 mL infused prior to mobile lab technician. Pre Procedural Pulses: bilateral dorsalis pedis was 2+. Pre Procedural Pulses: bilateral posterior tibial was 2+. Pre Procedural Pulses: bilateral radial was 2+. Oxygen started at 2liters/min via nasal canula. right groin was prepped with chloroprep then draped in the usual sterile fashion. right radial was prepped with chloroprep then draped in the usual sterile fashion. Physician notified. Baseline sample Acquired. HR: 51 BPM. Physician arrived. Immediate Pre-Procedure Time Out. Physician scrubbed in. Correct Patient: Yes; Correct Procedure: Yes; Correct Site: Yes; Correct Patient Position: Yes; Correct Supplies: Yes; Dried Flammable Prep: Yes; Blood Products Available: No;. Lidocaine 1% infiltrated to the right radial. Arterial access obtained. A 5 swazi Fritz catheter in over wire. Catheter removed over the exchange wire. A 5 swazi JR4 catheter in over wire. Exchange wire out. Glidewire in through catheter. Glidewire out. Standard wire in through catheter. standard wire out. Runthrough wire in through catheter. Runthrough wire out. Standard wire in through catheter in attempt to postion catheter. Standard wire out. Runthrough wire in. Wire out. Hand injection through catheter. Catheter removed over the exchange wire. Radial procedure aborted due to toruosity. A TR Band was successful obtaining hemostatsis at the Right Radial artery insertion site. Lidocaine 1% infiltrated to the right groin. Arterial access obtained with micropuncture set. Unable to advance access wire. Wire and needle out. Manual pressure held to stop bleeding. Arterial access obtained with micropuncture set. A Right femoral angiogram was performed to determine safe placement of closure device. A 5 swazi JL4 catheter in over wire. Multiple views taken of left coronary artery. Catheter removed over the standard wire. A 5 swazi JR4 catheter in over wire. Multiple views taken of right coronary artery. Multiple views taken of right coronary artery. Catheter removed over the exchange wire. A 5 swazi Angled Pig catheter in over wire. EDP Sample taken: LV 184/-13,15; HR: 65 BPM; SpO2: 100%. LV gram performed in HORNER @ 10 mL/second for a total of 30 mL. EDP Sample taken: LV 184/-5,20; HR: 66 BPM; SpO2: 100%. Pullback taken: LV 183/-6,19; AO 176/86(125); Mean: 7mmHg, Peak to Peak: 6mmHg, SEP: 23sec/min; HR: 68 BPM; SpO2: 100%. Catheter removed over the standard wire. 6 swazi JR 4 guide catheter was inserted over the wire. Add inventory: Co-jet pilot, endoflator. ACT drawn. Results 196 seconds. Therapeutic limits - pre-heparin administration 90-150 seconds and monitoring heparin during a vascular procedure >250 seconds. iFR wire in through guide catheter. Unable to engage RCA with guide catheter.IFR wire out. Guide catheter out. 6 swazi AL 0.75 guide catheter was inserted over the wire. iFR wire in through guide catheter. Unable to keep guide catheter engaged. IFR wire out. Guide catheter out. 6 swazi JR 4 guide catheter was inserted over the wire. Runthrough wire inserted. ACT drawn. Results 272 seconds. Therapeutic limits - pre-heparin administration 90-150 seconds and monitoring heparin during a vascular procedure >250 seconds. Alie Henao RN was relieved by LORE YoungerR) as monitoring person. Inflation number : 1 A AB TREK 2.50X20 RX BALLOON was prepped and advanced across the Mid RCA , then inflated to 14 BOYD for 0:14 seconds. Inflation number: 2 The AB TREK 2.50X20 RX BALLOON was reinflated across the Mid RCA, to 16 BOYD for 0:09 seconds. Balloon out. Inflation Number : 3 A MDT R GAURANG 3.5X30 MARCELINO -Lot Number# _[id number] EXP: 02/19/2027 was prepped and advanced across the Mid RCA. The stent was deployed at 16 BOYD for 0:17 seconds. Stent balloon out over wire. Patient's family updated. Inflation number : 4 A MDT NC EUPHORA RX [id number] BALLOON was prepped and advanced across the Mid RCA , then inflated to 14 BOYD for 0:13 seconds. Inflation number: 5 The MDT NC EUPHORA RX [id number] BALLOON was reinflated across the Mid RCA, to 16 BOYD for 0:13 seconds. Inflation number: 6 The MDT NC EUPHORA RX [id number] BALLOON was reinflated across the Mid RCA, to 17 BOYD for 0:18 seconds. Balloon out. Results checked. Wire out. A Suture was successful obtaining hemostatsis at the Right Femoral artery insertion site. Vital chart was stopped. Sheath(s) sutured into position with 2-0 silk and sterile 4x4's and Op-site applied over the site. No oozing or signs and symptoms of hematoma noted. Arterial sheath flushed and connected to tranducer and pressure bag with heparinized saline. Post Procedure: Pulses reassessed and unchanged. PERRLA. Strong, equal hand stock transfer clerk bilaterally. No VTE prophylaxis required. Medication's Wasted: Other = Fentanyl 75mcg Versed 1 mg. Total IV fluids: 80 mL. Post-op diagnosis: Stent to RCA. Complications: None. Estimated blood loss: 5mL-10mL. Responsiveness - Normal response to verbal stimuli; alert and oriented, PERRLA. Airway - Unaffected, no intervention required; spontaneous ventilation. Circulation: W/N/L, pulses unchanged. Nausea/Vomiting: No. Procedure completed. Patient transferred by bed to 1st floor. Access Site Site: Right Radial artery Sheath Size: 6 Fr Hemostasis Method: TR Band Hemostasis Success: Successful Site: Right Femoral artery Sheath Size: 6 Fr Hemostasis Method: Suture Hemostasis Success: Successful Procedure Medications Start: 10:25 AM Stop: 10:25 AM Medication: Versed Amount: 1 mg Route: I.V. Start: 10:25 AM Stop: 10:25 AM Medication: Fentanyl Amount: 50 mcg Route: I.V. Start: 10:35 AM Stop: 10:35 AM Medication: Nitrogylcerin Amount: 200 mcg Route: I.A. Start: 10:45 AM Stop: 10:45 AM Medication: Versed Amount: 1 mg Route: I.V. Start: 10:45 AM Stop: 10:45 AM Medication: Fentanyl Amount: 25 mcg Route: I.V. Start: 10:49 AM Stop: 10:49 AM Medication: Heparin Amount: 5000 units Start: 11:16 AM Stop: 11:16 AM Medication: Hydralazine Amount: 10 mg Route: I.V. Start: 11:15 AM Stop: 11:15 AM Medication: Nitrogylcerin Amount: 200 mcg Route: I.A. Start: 11:18 AM Stop: 11:18 AM Medication: Fentanyl Amount: 25 mcg Route: I.V. Start: 11:31 AM Stop: 11:31 AM Medication: Heparin Amount: 4000 units Route: I.V. Start: 11:52 AM Stop: 11:52 AM Medication: Versed 1 mg and Fentanyl 25 mcg Amount: 1 Route: I.V. Start: 11:55 AM Stop: 11:55 AM Medication: Heparin Amount: 3000 units Route: I.V. Start: 12:00 PM Stop: 12:00 PM Medication: Aggrastat 12.5 mg/250 mL Amount: 51 ml Route: I.V. bolus Start: 12:05 PM Stop: 12:05 PM Medication: Brilinta Amount: 180 mg Route: P.O. I, the attending physician, have reviewed and verified all procedure medications. Yes, all medications given per verbal order History/Risk Factors Hypertension: No Dyslipidemia: Yes Peripheral Arterial Disease (PAD): No Myocardial Infarction (ID): No Obesity: Yes Renal Disease: No Tobacco Use: Current/Recent(w/in 1 year) Prior Interventions PCI: No CABG: No Valve Surgery: No Report Signatures Finalized by Everardo Ziegler MD on 08/05/2024 03:48 PM
[2024-07-18 09:31] LABS: Anion Gap 17.7 (5-19); Blood Urea Nitrogen 10 mg/dL (6-20); Calcium 9.7 mg/dL (8.5-10.5); Carbon Dioxide 26 mmol/L (22-29); Chloride 104 mmol/L (98-107); Creatinine Clr Calc Pharmacy 134.9946; Glucose 85 mg/dL (65-115); Osmolality Calculated 296 mOsm/kg (285-295); Potassium 3.7 mmol/L (3.5-5.1); Sodium 144 mmol/L (136-145)
--- NOTE | 2024-07-18 10:13 | W.PM.OPSUD ---
Surgery/Procedure H&P Update DATE OF PROCEDURE: July 18, 2024 DATE H&P PERFORMED: 07/04/24 H&P UPDATE INFORMATION: I have reviewed H&P completed within last 30 days, I have examined patient prior to procedure and No changes to prior documentation PREOP DIAGNOSIS: Angina, abnormal stress test PRIMARY INDICATION FOR PROCEDURE: Angina with abnormal stress test PLANNED PROCEDURE: Operation Date: 07/18/24 10:00 Proposed Procedures p Cardiac Catheterization - C w/wo LV & Coros(Left) - Everardo Ziegler MD PATIENT REASSESSED PRIOR TO SEDATION, WITH NO CHANGE NOTED: Yes PHYSICAL EXAM: alert, oriented x 3, clear to auscultation bilaterally, regular rate & rhythm and operative site marked AIRWAY EVAL/ANESTHESIA PLAN: ASA II, Risks, benefits & alternatives of sedation and/or procedure discussed and Patient agrees to continue as planned ADDITIONAL INFORMATION: Patient has been explained all risk-benefit and alternative for the procedure patient understand 2% risk of stroke major bleed. Patient understand 5 to 6% risk of hematoma pseudoaneurysm contrast induced nephropathy minor bleeding. We will proceed with the testis patient agrees with that.
--- NOTE | 2024-07-18 12:12 | PM.PROC ---
Procedure Note: Date of procedure: 07/18/24 Pre-procedure diagnosis: Abnormal stress test Post-procedure diagnosis: same Procedure: Left heart cath was performed: Indication was abnormal stress test with unstable angina Left main: No significant disease LAD: Luminal irregularity without significant stenosis LCx: Luminal irregularity without significant stenosis RCA: Significant mid 80% stenosis PCI: Mid RCA was treated with single drug-eluting stent postdilated with noncompliant balloon. Excellent angiographic result SOPHIA-3 flow was achieved. No complication. Plan: Patient is loaded with 180 mg of Brilinta and aspirin 325 mg. Patient will be continuing 90 mg of Brilinta and 81 mg of aspirin from tomorrow. Patient started on statin. Patient has right groin sheath: She will be on Aggrastat for 1 hour. In 3 hours check PTT less than 45 sheath can be pulled out. 5-hour bedrest after pulling out the sheath. Full note to be dictated. Coding Level of Care Code Acute Code for Alexandra Fwsarahi
[2024-07-18] MEDS: sodium chloride 0.9% 1,000 ML 100 ML IV (12:30)
--- NOTE | 2024-07-18 13:03 | PC.NURSE ---
received from cardiac cheesemaking laborer via bed at 1230.report received.pt is alert and awake and oriented x 4. denies pain at present.sr on monitor.denies pain at present.right wrist with tr band on and inflated.right hand is warm to touch and with brisk capillary refill.palpable radial pulse noted distal to tr band.no hematoma noted.right femoral arterial sheath intact to pressurized system.no hematoma noted.right leg is warm to touch and with brisk capillary refil.palpable dp pulse noted.pt instructed in activity restrictions s/p radial and femoral artery procedures...and instructed to notify staff for any pain,sob,numbness,bleeding...or for any concerns at all.pt verb understanding of instructions.
[2024-07-18] MEDS: hyDRALAzine 20 mg/mL INJ 1 mL 10 MG IVP (14:05)
[2024-07-18] MEDS: ondansetron 2 mg/ML SDV 2 mL 4 MG IVP (14:15)
[2024-07-18 14:42] LABS: Partial Thromboplastin Time 110.7 SECONDS (23.9-36.7)
[2024-07-18] MEDS: fentaNYL 50 mcg/mL INJ 2mL IVP (15:49)
[2024-07-18] MEDS: metoprolol succinate ER (24 HR) 25 mg Tablet PO (15:50)
--- NOTE | 2024-07-18 15:57 | PC.NURSE ---
alonzoastnatanael dc'd at 1315 as directed by kenji marcus from cardiac catheterization technologist.at 1355 a hematoma was noted in right groin,medial to sheath insertion site,measuring approx 4 cm.pressure immediately applied and kimberli villatoro aprn notified.vss however bp slightly high.harmony arrived quickly and assessed pt.she apprised dr villalobos of the situation and ordered hydralazine 10 mg iv push.pressure was held x 20 min.ptt obtained.hematoma softened up.will cont to observe closely.
--- NOTE | 2024-07-18 16:12 | PC.NURSE ---
at 1500 pt noted to be bleeding from right femoral sheath site and hematoma present again medially to sheath insertion.ptt 110.pressure applied immediately and dr villalobos notified.he came to bedside quickly with chato granados.fentanyl given iv as ordered.angioseal inserted.vss.pt tolerated procedure well.will cont to observe closely.right leg remains warm to touch and with brisk cappilary refill.palpable dp pulse present.pt instructed to not move right leg and to notify staff if dev sob,increased pain,pain in low back,bleeding.pt verb understanding of instructions
--- NOTE | 2024-07-18 18:35 | PC.NURSE ---
no further bleeding,no further hematoma formation noted.pt remains on bedrest.
[2024-07-18] MEDS: atorvastatin 40 mg Tablet 80 MG PO (22:26)
[2024-07-19] VITALS: BP 158/90; PULSE 70; RESP 14; TEMP 36.6; O2SAT 97
[2024-07-19 03:18] LABS: Basophils # 0.1 10^3/uL (0.0-0.1); Basophils % 0.6 %; Eosinophils # 0.2 10^3/uL (0.0-0.8); Eosinophils % 1.6 %; Hematocrit 39.7 % (36-47); Lymphocytes # 2.5 10^3/uL (0.8-4.8); Lymphocytes % 21.9 %; Mean Corpuscular HGB Conc 32.5 g/dL (30-55); Mean Corpuscular Hemoglobin 31.9 pg (27-33); Mean Corpuscular Volume 98.3 fl (85-98); Mean Platelet Volume 9.5 fL (7.4-10.4); Monocytes # 1.1 10^3/uL (0.2-0.9); Monocytes % 9.7 %; Neutrophils # 7.37 10^3/uL (1.8-7.7); Neutrophils % 65.3 %; Nucleated Red Blood Cells % 0 %; Platelet Count 301 10^3/cmm (157-399); Red Blood Count 4.04 10^6/uL (3.85-5.65); Red Cell Distribution Width 15.2 % (12.1-15.1)
[2024-07-19 03:39] LABS: Anion Gap 16.2 (5-19); Blood Urea Nitrogen 13 mg/dL (6-20); Calcium 9.5 mg/dL (8.5-10.5); Carbon Dioxide 27 mmol/L (22-29); Chloride 103 mmol/L (98-107); Creatinine Clr Calc Pharmacy 93.4704; Glomerular Filtration Rate 75.3 mL/min (90-130); Glucose 108 mg/dL (65-115); Osmolality Calculated 295 mOsm/kg (285-295); Potassium 4.2 mmol/L (3.5-5.1); Sodium 142 mmol/L (136-145)
[2024-07-19 04:00] VITALS: BP 146/80; PULSE 68; RESP 13; TEMP 36.8; O2SAT 97
[2024-07-19 06:00] VITALS: BMI 37.3
[2024-07-19 08:00] VITALS: BP 125/72; PULSE 79; RESP 12; TEMP 36.9; O2SAT 93
[2024-07-19] MEDS: aspirin 81 mg EC Tablet PO (08:52)
[2024-07-19] MEDS: ticagrelor 90 mg Tablet PO (08:52)
[2024-07-19] MEDS: metoprolol succinate ER (24 HR) 25 mg Tablet PO (08:54)
[2024-07-19 10:20] VITALS: BP 123/75; PULSE 77; RESP 18; TEMP 36.5; O2SAT 94
--- NOTE | 2024-07-19 10:22 | PC.NURSE ---
Shafer catheter removed after deflating 10ml balloon. Patient tolerated well.
--- NOTE | 2024-07-19 10:42 | P.DS_ITS ---
<Statement entered by Everardo Ziegler MD - 07/19/24 18:07> Patient was evaluated and cared for in conjunction with an advanced practice practitioner. I personally examined the patient and reviewed the chart and all pertinent data including imaging, telemetry, and laboratory results. I discussed the patient in detail with the advanced practice practitioner. Please see their note for complete H&P testing result and agreed upon plan of care for the patient. Patient underwent left heart catheterization noted to have significant RCA stenosis treated with drug-eluting stent postdilated with noncompliant balloon. Patient tolerated procedure well and being discharged home. GENERAL: Patient is alert, awake and oriented x3. HEART: Regular S1 and S2. No murmur, rub or gallop. LUNGS: Clear to auscultate bilaterally. CENTRAL NERVOUS SYSTEM: Grossly nonfocal. EXTREMITIES: Lower extremities with out edema bilaterally. Right groin moderate bruising . Assessment and plan Worsening of angina Abnormal stress test Status post PCI to RCA doing fine from cardiovascular perspective, Patient is being discharged home on Brilinta aspirin statin advised to continue Brilinta 90 mg p.o. twice daily and aspirin 81 mg for at least 1 year. Follow-up with cardiology in 1 week Discharge Providers Date of Admission: 07/18/2024 Date of Discharge: July 19, 2024 Attending Provider at Admission: Everardo Ziegler MD Attending Provider at Discharge: Everardo Ziegler MD Primary Care Provider: Dina Velez MD Reason for Visit Reason for Visit: R94.39 Brief History: The patient is a 53-year-old female presenting with an abnormal stress test. The stress test, initiated due to a significant family history of coronary artery disease, showed an ischemic reversible defect in the apical lateral segment consistent with possible LAD circumflex territory involvement, yet without impact on the left ventricular ejection fraction. Family history is notable for father and older brother who both required surgical interventions for coronary artery disease, including a heart attack incurred by the brother during exertion. The patient reports daily chest pain with a constant pressure on the left side, alongside a decreased capacity for physical exertion due to chest discomfort, though activity itself does not provoke or exacerbate symptoms. She acknowledges being a smoker, with attempts to reduce tobacco use, and has been previously advised of a prediabetes condition. Other notable symptoms include morning edema of the lower extremities and elevated blood pressure readings. The patient has recently commenced therapy for hypercholesterolemia, initiated by her primary physician. Hospital Course Hospital Course She was brought in yesterday for coronary angiogram revealing significant mid RCA stenosis which was treated with MARCELINO x 1, no other significant disease. She had some bleeding around the right femoral sheath, as she was loaded with Brilinta and received with Aggrastat. An Angio-Seal was placed by Dr. Ziegler yesterday afternoon which resolved the bleeding. Today she has some bruising of the right groin, no hematoma palpable, no pain in the groin, distal pulse is strong. No chest pain post procedure. She can discharge home today with Brilinta 90 mg twice a day, metoprolol succinate 25 mg daily added for blood pressure control, continue baby aspirin, atorvastatin escalated to 80 mg daily. Follow-up with BLOCKER POLISHING in cardiology clinic in 7 to 10 days. Physical Exam Const: COMMON NORMALS: no acute distress and patient oriented x3 GENERAL APPEARANCE: cooperative ORIENTATION/CONSCIOUSNESS: Yes awake, Yes oriented to person, Yes oriented to place and Yes oriented to time Chest: COMMONS NORMALS: normal inspection of the chest and normal palpation of entire chest wall CHEST: Yes Symmetrical chest wall rise Resp: COMMON NORMALS: normal respiratory effort, No retractions, No use of accessory muscles and clear to auscultation bilaterally AUSCULTATION: clear to auscultation bilaterally Cardio: COMMON NORMALS: regular rate, regular rhythm, S1 normal heart sound present, S2 normal heart sound present, No gallops present (Cardio), No clicks present (Cardio), No murmurs present (Cardio) and No rub (Cardio) RATE: regular rate RHYTHM: regular rhythm HEART SOUNDS: S1 normal heart sound present and S2 normal heart sound present PERIPHERAL PULSES: radial pulses present positive right 2+ and femoral pulses present positive right 2+ Neuro: COMMON NORMALS: patient oriented x3 and moves all extremities SENSORIUM/ORIENTATION: Yes oriented to person, Yes oriented to place and Yes oriented to time Skin: WOUNDS: Yes surgical site (no hematoma palpable- bruising present) Details: no odor Urinary Catheter Management: Shafer: Cath Placed During This Visit: yes Reason for Continuing Indwelling Catheter: Other Urinary Catheter Date of Insertion: 07/18/24 Urinary Catheter Time of Insertion: 14:00 Discharge Data Studies Completed and Pending Pending at discharge Category Date Time Status 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 request for service Routine Exams 07/18/24 09:00 Ordered Laboratory Results WBC 11.30 10^3/uL (3.29-11.43) 07/19/24 02:50 RBC 4.04 10^6/uL (3.85-5.65) 07/19/24 02:50 Hgb 12.90 g/dL (11.27-16.99) 07/19/24 02:50 Hct 39.7 % (36-47) 07/19/24 02:50 MCV 98.3 fl (85-98) H 07/19/24 02:50 MCH 31.9 pg (27-33) 07/19/24 02:50 MCHC 32.5 g/dL (30-55) 07/19/24 02:50 RDW 15.2 % (12.1-15.1) H 07/19/24 02:50 Plt Count 301 10^3/cmm (157-399) 07/19/24 02:50 MPV 9.5 fL (7.4-10.4) 07/19/24 02:50 Neut % (Auto) 65.3 % 07/19/24 02:50 Lymph % (Auto) 21.9 % 07/19/24 02:50 [place] % (Auto) 9.7 % 07/19/24 02:50 Eos % (Auto) 1.6 % 07/19/24 02:50 Baso % (Auto) 0.6 % 07/19/24 02:50 Neut # (Auto) 7.37 10^3/uL (1.8-7.7) 07/19/24 02:50 Lymph # (Auto) 2.5 10^3/uL (0.8-4.8) 07/19/24 02:50 [place] # (Auto) 1.1 10^3/uL (0.2-0.9) H 07/19/24 02:50 Eos # (Auto) 0.2 10^3/uL (0.0-0.8) 07/19/24 02:50 Baso # (Auto) 0.1 10^3/uL (0.0-0.1) 07/19/24 02:50 Nucleated RBC % (auto) 0 % 07/19/24 02:50 Nucleated RBCs # 0.0 /100WBC 07/19/24 02:50 APTT 110.7 SECONDS (23.9-36.7) H 07/18/24 14:13 Sodium 142 mmol/L (136-145) 07/19/24 02:50 Potassium 4.2 mmol/L (3.5-5.1) 07/19/24 02:50 Chloride 103 mmol/L (98-107) 07/19/24 02:50 Carbon Dioxide 27 mmol/L (22-29) 07/19/24 02:50 Anion Gap 16.2 (5-19) 07/19/24 02:50 BUN 13 mg/dL (6-20) 07/19/24 02:50 Creatinine 0.8 mg/dL (0.5-0.9) 07/19/24 02:50 GFR Calculation 75.3 mL/min (90-130) L 07/19/24 02:50 Glucose 108 mg/dL (65-115) 07/19/24 02:50 Calculated Osmolality 295 mOsm/kg (285-295) 07/19/24 02:50 Calcium 9.5 mg/dL (8.5-10.5) 07/19/24 02:50 Vitals Last Vital Signs Temp 97.7 F 07/19/24 10:20 Pulse 77 07/19/24 10:20 Resp 18 07/19/24 10:20 BP 123/75 07/19/24 10:20 Pulse Ox 94 07/19/24 10:20 O2 Del Method Room Air 07/19/24 08:00 O2 Flow Rate 3 07/19/24 04:00 Discharge Plan Discharge Patient Disposition: Home Prescriptions: New aspirin 81 mg Tablet,Delayed Release (Dr/Ec) 81 mg PO DAILY Qty: 90 0RF nitroglycerin 0.4 mg Tablet, Sublingual 0.4 mg sublingual Q5M PRN (Reason: Chest Pain) Qty: 30 3RF metoprolol succinate 25 mg Tablet Extended Release 24 Hr 25 mg PO DAILY Qty: 90 3RF Brilinta 90 mg Tablet 90 mg PO BID Qty: 180 3RF atorvastatin [Lipitor] 80 mg tablet 80 mg PO DAILY Qty: 90 3RF Continued hydroxychloroquine 200 mg tablet 200 mg PO BID Qty: 180 1RF leflunomide 20 mg tablet 20 mg PO DAILY Qty: 90 1RF prednisone 5 mg tablet 5 mg PO QDAY Qty: 90 1RF gabapentin 100 mg capsule See Rx Instructions .ROUTE .COMPLEX Qty: 120 3RF Rx Instructions: Take 1 tablet by mouth in the morning, 1 tablet at mid day and 2 tablets at bedtime. baclofen 10 mg tablet 10 mg PO TID PRN (Reason: muscle spasm) Qty: 90 3RF citalopram 40 mg tablet 40 mg PO DAILY Qty: 90 1RF tramadol 50 mg tablet 50 mg PO BID PRN (Reason: pain (scale score 7-10)) Qty: 60 0RF tramadol 50 mg tablet 50 mg PO BID PRN (Reason: pain (scale score 7-10)) Qty: 60 0RF hydroxyzine HCl 25 mg tablet 12.5 - 25 mg PO Q6H PRN (Reason: anxiety/sleep) Discontinued isosorbide mononitrate 30 mg tablet extended release 24 hr 30 mg PO DAILY Qty: 90 3RF atorvastatin [Lipitor] 40 mg tablet 40 mg PO .qpm Qty: 90 1RF aspirin 81 mg tablet,chewable 81 mg PO DAILY Qty: 30 0RF nitroglycerin 0.4 mg tablet, sublingual 0.4 mg sublingual Q5M PRN (Reason: chest pain) Qty: 100 0RF Rx Instructions: do not exceed 3 doses per episode; take one SL if having chest pain, may repeat in 5 min if no relief; if no relief after 3 doses call 911 Discharge Orders: Discharge Order (Routine); Ordered 07/19/24 Ordered By: Davida Smart Referrals: Kim Vasquez NP [Nurse Practitioner, Cardiology] - 7-10 days Referral Note: We have notified your physician's clinic of the need for a follow-up appointment to be scheduled. If you have not heard from them within the next 2 business days, please call them directly. Diet: Advance as tolerated Activity: Increase activity as tolerated Patient Instructions: Ticagrelor (By mouth), Coronary Angioplasty (DC), Chest Pain Stoplight Activity Restrictions/Additional Instructions: No lifting over 12 pounds for the next week. Print Language: Urdu Discharge Attestations Time Spent in Discharge Care*: less than 30 min Quality Metrics Clinical Quality Measures [ No reported AMI, CVA or VTE this stay] Coding Level of Care Code Acute Code for Chg Fwd
== END 2024-07-19 11:30 | disposition home or self-care (01) ==
LOC: CCL 08:26 → CSU 14:27
PROVIDERS: PCP Family Medicine; Visit Provider Internal Medicine Cardiovascular Disease
DX: I25.10 Atherosclerotic heart disease of native coronary artery without angina pectoris (principal); E78.5 Hyperlipidemia, unspecified; E66.9 Obesity, unspecified; Z68.37 Body mass index [BMI] 37.0-37.9, adult; Z79.82 Long term (current) use of aspirin; F17.210 Nicotine dependence, cigarettes, uncomplicated; F15.11 Other stimulant abuse, in remission; F12.90 Cannabis use, unspecified, uncomplicated; Z82.49 Family history of ischemic heart disease and other diseases of the circulatory system
CPT/HCPCS: 36415; 51702; 80048; 85025; 85347; 85730; 93458; 96374; 96375; 99152; 99153; C1725; C1769; C1874; C1887; C1894; C9600; J0360; J1644; J2250; J2405; J3010; J3490; J7030; J9999; Q0163; Q9967

== ENCOUNTER → 2024-08-01 08:46 | Outpatient (BNVA) | payer OTHER, SELFPAY | PROVIDERS: PCP Family Medicine; Visit Provider Nurse Practitioner Family | DX: I10 Essential (primary) hypertension (principal) | CPT/HCPCS: 36415; 80053; 82550; 85025 ==

== ENCOUNTER 2024-08-08 14:30 | Emergency (ER) | payer OTHER, SELFPAY ==
[2024-08-08 14:34] VITALS: BP 156/88; PULSE 90; RESP 17; TEMP 36.3; O2SAT 97; BMI 34.4
--- NOTE | 2024-08-08 14:39 | ECG_ITS ---
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 Measurements Intervals [place] Rate: 81 P: 55 WI: 127 QRS: 60 QRSD: 78 T: 64 QT: 394 QTc: 459 Interpretive Statements SINUS RHYTHM Compared to ECG 02/03/2024 07:59:47 Sinus tachycardia no longer present ST (T wave) deviation no longer present Electronically Signed On 08-13-2024 11:49:54 CDT by El Page M.D. [email or web address]
== END 2024-08-08 16:45 | disposition left against medical advice (07) ==
PROVIDERS: Emergency Provider Family Medicine; PCP Family Medicine
DX: Z01.89 Encounter for other specified special examinations (principal); Z53.21 Procedure and treatment not carried out due to patient leaving prior to being seen by health care provider
CPT/HCPCS: 93005

== ENCOUNTER 2024-08-09 07:17 | Emergency (ER) | payer OTHER, SELFPAY ==
[2024-08-09 07:23] VITALS: BP 176/99; PULSE 99; RESP 16; TEMP 36.7; O2SAT 97; BMI 34.4
--- NOTE | 2024-08-09 07:25 | XR_ITS ---
WS: [id number] Portable AP upright chest, 08/09/2024 Clinical Data: dyspnea/cough Comparison: Portable chest, 02/03/2024 Findings: No nodules, masses or effusions are seen. The heart is normal. The pulmonary vascularity is not increased. No pneumonia or pneumothorax is seen. Monitor leads are on the chest wall. XR/XR chest 1V portable [id number] Impression: Negative chest.
[2024-08-09 07:28] VITALS: BP 176/99; PULSE 90; RESP 17; O2SAT 98
--- NOTE | 2024-08-09 07:29 | ECG_ITS ---
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 Measurements Intervals [place] Rate: 90 P: 37 MO: 132 QRS: 49 QRSD: 80 T: 59 QT: 381 QTc: 468 Interpretive Statements SINUS RHYTHM Compared to ECG 08/08/2024 14:39:07 No significant changes Electronically Signed On 08-13-2024 11:47:07 CDT by El Page M.D. [id number]
--- NOTE | 2024-08-09 07:33 | ED_ITS ---
HPI - Nausea/Vomiting/Diarrhea 2 General: Chief complaint: Nausea/Vomiting/Diarrhea Stated complaint: not feeling good x1 wk-diaherra Time Seen by Provider: 08/09/24 07:24 History of Present Illness: 53-year-old female presents to the [facility] ency room with complaints of generally not feeling well. Earlier this year patient had a positive stress test eventually underwent angiogram and had a lesion of the mid RCA treated with a single drug-eluting stent. She was discharged home on Brilinta. She said for the last week she is felt generally weak intermittent shortness of breath with exertion and intermittent orthopnea but it is not consistent. Sometimes she states she can walk without any difficulty or she can lay down flat without any difficulty other times she will get short of breath. She has not had any chest pain. She is reporting diarrhea. She is on Brilinta. She has not had any recent antibiotics she denies any medic easy melena hematemesis cough cramps denies any dysuria urgency or frequency Associated symtoms: Denies chest pain or dysuria Related Data Previous Rx's ?Medication ?Instructions ?Recorded baclofen 10 mg tablet 10 mg PO TID PRN muscle spas m #90 05/23/24 tabs citalopram 40 mg tablet 40 mg PO DAILY mental health #90 07/03/24 tabs tramadol 50 mg tablet 50 mg PO BID PRN pain (scale score 07/09/24 7-10) #60 tabs hydroxychloroquine 200 mg tablet 200 mg PO BID #180 ta bs 07/15/24 leflunomide 20 mg tablet 20 mg PO DAILY #90 tabs 0508/04 prednisone 5 mg tablet 5 mg PO QDAY #90 tabs aspirin 81 mg tablet,delayed 81 mg PO DAILY #90 tabs 0 07/19/24 release atorvastatin 80 mg tablet (Lipitor) 80 mg PO DAILY #90 tabs 07/19/24 metoprolol succinate 25 mg 25 mg PO DAILY #90 tabs 12/05 tablet,extended release 24 hr nitroglycerin 0.4 mg sublingual 0.4 mg sublingual Q5M PRN Chest 07/19/24 tablet Pain #30 tabs ticagrelor 90 mg tablet (Brilinta) 90 mg PO BID #180 t abs 07/19/24 gabapentin 100 mg capsule See Rx Instructions .Route 0 07/23/24 .COMPLEX chronic pain #120 caps bupropion HCl 150 mg tablet,12 hr 150 mg PO BID #60 ta bs 08/02/24 sustained-release (Wellbutrin SR) clopidogrel 75 mg tablet (Plavix) 75 mg PO DAILY #30 t abs 08/09/24 isosorbide mononitrate 30 mg 30 mg PO DAILY #30 tabs 0 08/09/24 tablet,extended release 24 hr Allergies Allergy/AdvReac Type Severity Reaction Status Date / Time No Known Allergies Allergy Verified 08/01/24 08:01 Review of Systems 2 Const: Denies: fever(s) or chills Card: Denies: chest pain Resp: Denies: dyspnea GI: Denies: abdominal pain : Denies: dysuria, urinary frequency or urinary urgency Musc: Denies: neck pain or back pain Skin/Breast: Denies: rash PFSH ED 2 PFSH: Medical History Abnormal stress test Nicotine dependence, cigarettes, uncomplicated Vitamin D deficiency Seronegative rheumatoid arthritis of both hands High risk medication use Inflammatory arthritis seeing rheumatology Muscle spasms of both lower extremities Arthralgia of multiple joints Onychomycosis Equinus contracture of right ankle Equinus contracture of left ankle Ulnar nerve neuropathy Heel pain, chronic Depression Anxiety Surgical History Hx of foot surgery right foot for plantar fasciitis History of hysterectomy with bilateral oophorectomy done for cervical dysplasia H/O LEEP Family History Mother CAD (coronary artery disease) Grandmother Dementia Father CAD (coronary artery disease) Gout Other Hyperlipidemia Hypertension Social History Smoking and tobacco/nicotine status: current every day tobacco/nicotine user cigarettes Packs smoked per day: 0.5 [ Other cigarette details: started smoking age 33] Alcohol intake: never Substance/Drug Use: former Date of last use: 20 yrs ago for meth Former substance use details: 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; currently does marijuana Household members: significant other Marital status: Number of children: 2 Highest education level completed: High School Graduate Current occupational status: employed Previous occupational history: [employer] Physical Exam 2 Const: ORIENTATION/CONSCIOUSNESS: Yes awake, Yes oriented to person, Yes oriented to place and Yes oriented to time HENMT: COMMON NORMALS: normocephalic, atraumatic and hearing grossly normal bilaterally HEAD & SCALP: normocephalic and atraumatic Resp: COMMON NORMALS: normal respiratory effort, No retractions, No use of accessory muscles and clear to auscultation bilaterally AUSCULTATION: clear to auscultation bilaterally Cardio: COMMON NORMALS: regular rate, regular rhythm and No murmurs present (Cardio) RATE: regular rate RHYTHM: regular rhythm GI: COMMON NORMALS: Soft to palpation and No hepatosplenomegaly present A USCULTATION: Yes normoactive bowel sounds PALPATION: Yes Soft to palpation, No Tenderness to palpation present (GI), No Guarding due to palpation present (GI) and Yes No hepatosplenomegaly present Extremity: COMMON NORMALS: normal to inspection, capillary refill normal, no clubbing, cyanosis or edema, no calf tenderness and no pedal edema Neuro: SENSORIUM/ORIENTATION: Yes oriented to person, Yes oriented to place and Yes oriented to time Skin: COMMON NORMALS: no rashes or lesions noted GENERAL SKIN EXAM: no rashes or lesions noted Course 2 Vital Signs: Vital signs: Vital Signs Temperature 98.0 F 08/09/24 07:23 Pulse Rate 92 08/09/24 09:00 Respiratory Rate 19 H 08/09/24 09:00 Blood Pressure 142/85 08/09/24 09:00 Pulse Oximetry 94 08/09/24 09:00 Oxygen Delivery Me thod Room Air 08/09/24 07:23 MDM - Nausea/Vomiting/Diarrhea Medical Decision Making Labs and imaging reviewed. Patient has a mild anion gap. She is feeling better after we decreased her blood pressure. She was given a heart monitor at an little bit of Lasix. Chest x-ray looks like she may have a little bit of increased fluid overload. Suspect some of her symptoms may be side effect of Brilinta. I discussed with Dr. Page was on-call reviewed the cardiac enzymes since they are still within negative ranges and her EKG does not show any acute fracture and there were no other lesions on her angiogram he felt she can be discharged home with isosorbide mononitrate 30 mg once a day as well as adding Plavix and stopping her Brilinta. She is given a loading dose of 600 mg started on Plavix 75 mg daily she should follow-up with her primary care doctor within the next week. Medical Records Echocardiogram August 01, 2024 CONCLUSIONS Normal left ventricular size, systolic function and wall thickness, with no regional wall motion abnormalities. Left ventricular ejection fraction is estimated at 60 %. Normal diastolic function. Moderate aortic valve calcification. Mild aortic valve stenosis, mean gradient 3.5 mmHg, LJ 1.7 cm squared. Trace aortic valve regurgitation. Moderately thickened mitral valve. No mitral valve stenosis. Mild mitral valve regurgitation. There is no pericardial effusion. Right atrial pressure is around 5 mm of mercury. Date of procedure: 07/18/24 Pre-procedure diagnosis: Abnormal stress test Post-procedure diagnosis: same Procedure: Left heart cath was performed: Indication was abnormal stress test with unstable angina Left main: No significant disease LAD: Luminal irregularity without significant stenosis LCx: Luminal irregularity without significant stenosis RCA: Significant mid 80% stenosis PCI: Mid RCA was treated with single drug-eluting stent postdilated with noncompliant balloon. Excellent angiographic result SOPHIA-3 flow was achieved. No complication. Plan: Patient is loaded with 180 mg of Brilinta and aspirin 325 mg. Patient will be continuing 90 mg of Brilinta and 81 mg of aspirin from tomorrow. Patient started on statin. Lab Data 08/09/24 07:41 08/09/24 07:41 Radiology Impressions Chest X-Ray 08/09/24 07:25 Impression: Negative chest. Laboratory Results WBC 9.23 10^3/uL (3.29-11.43) 08/09/24 07:41 RBC 4.51 10^6/uL (3.85-5.65) 08/09/24 07:41 Hgb 14.50 g/dL (11.27-16.99) 08/09/24 07:41 Hct 44.3 % (36-47) 08/09/24 07:41 MCV 98.2 fl (85-98) H 08/09/24 07:41 MCH 32.2 pg (27-33) 08/09/24 07:41 MCHC 32.7 g/dL (30-55) 08/09/24 07:41 RDW 15.3 % (12.1-15.1) H 08/09/24 07:41 Plt Count 359 10^3/cmm (157-399) 08/09/24 07:41 MPV 9.7 fL (7.4-10.4) 08/09/24 07:41 Neut % (Auto) 63.8 % 08/09/24 07:41 Lymph % (Auto) 23.9 % 08/09/24 07:41 [place] % (Auto) 8.0 % 08/09/24 07:41 Eos % (Auto) 2.2 % 08/09/24 07:41 Baso % (Auto) 1.1 % 08/09/24 07:41 Neut # (Auto) 5.89 10^3/uL (1.8-7.7) 08/09/24 07:41 Lymph # (Auto) 2.2 10^3/uL (0.8-4.8) 08/09/24 07:41 [place] # (Auto) 0.7 10^3/uL (0.2-0.9) 08/09/24 07:41 Eos # (Auto) 0.2 10^3/uL (0.0-0.8) 08/09/24 07:41 Baso # (Auto) 0.1 10^3/uL (0.0-0.1) 08/09/24 07:41 Nucleated RBC % (auto) 0 % 08/09/24 07:41 Nucleated RBCs # 0.0 /100WBC 08/09/24 07:41 Sodium 143 mmol/L (136-145) 08/09/24 07:41 Potassium 3.7 mmol/L (3.5-5.1) 08/09/24 07:41 Chloride 103 mmol/L (98-107) 08/09/24 07:41 Carbon Dioxide 21 mmol/L (22-29) L 08/09/24 07:41 Anion Gap 22.7 (5-19) H 08/09/24 07:41 BUN 14 mg/dL (6-20) 08/09/24 07:41 Creatinine 0.7 mg/dL (0.5-0.9) 08/09/24 07:41 GFR Calculation 87.9 mL/min (90-130) L 08/09/24 07:41 Glucose 181 mg/dL (65-115) H 08/09/24 07:41 Calculated Osmolality 301 mOsm/kg (285-295) H 08/09/24 07:41 Calcium 9.9 mg/dL (8.5-10.5) 08/09/24 07:41 Total Bilirubin 0.9 mg/dL (0.15-1.2) 08/09/24 07:41 AST 34 U/L (0-32) H 08/09/24 07:41 ALT 32 U/L (0-33) 08/09/24 07:41 Alkaline Phosphatase 116 U/L (35-105) H 08/09/24 07:41 Troponin T Baseline < 6 ng/L (0-10) 08/09/24 07:41 Troponin T 120 Minute 10.36 ng/L (0-10) H 08/09/24 09:42 Delta Troponin T 4.62443 ABS# (0-10) 08/09/24 09:42 NT-Pro-B Natriuret Pep 164 pg/mL (0-125) H 08/09/24 07:41 Total Protein 7.5 g/dL (6.6-8.7) 08/09/24 07:41 Albumin 4.5 g/dL (3.5-5.2) 08/09/24 07:41 Globulin 3.0 g/dL (1.3-4.6) 08/09/24 07:41 All radiology interpretation(s) finalized by discharge EKG Data EKG 1: Interpretation: EKG 08/09/2024 729 sinus rhythm no acute ST changes noted rate of 90 TX interval 132. Compared to EKG 08/08/2024 there are no changes EKG 2: Interpretation: EKG 08/09/2024 945 sinus rhythm no acute ST changes noted unchanged from 529 and EKG done earlier today. Rate of 96 TX interval 133 QT 359 Discharge Plan Discharge Patient Disposition: Home Clinical Impression: Medication side effect, CAD (coronary artery disease) HTN (hypertension) Qualifiers: Hypertension type: primary hypertension Qualified Code(s): I10 - Essential (primary) hypertension Condition: Stable Prescriptions: New isosorbide mononitrate 30 mg tablet extended release 24 hr 30 mg PO DAILY Qty: 30 0RF clopidogrel [Plavix] 75 mg tablet 75 mg PO DAILY Qty: 30 0RF No Action hydroxychloroquine 200 mg tablet 200 mg PO BID Qty: 180 1RF leflunomide 20 mg tablet 20 mg PO DAILY Qty: 90 1RF prednisone 5 mg tablet 5 mg PO QDAY Qty: 90 1RF baclofen 10 mg tablet 10 mg PO TID PRN (Reason: muscle spasm) Qty: 90 3RF citalopram 40 mg tablet 40 mg PO DAILY Qty: 90 1RF tramadol 50 mg tablet 50 mg PO BID PRN (Reason: pain (scale score 7-10)) Qty: 60 0RF gabapentin 100 mg capsule See Rx Instructions .ROUTE .COMPLEX Qty: 120 3RF Rx Instructions: Take 1 tablet by mouth in the morning, 1 tablet at mid day and 2 tablets at bedtime. bupropion HCl [Wellbutrin SR] 150 mg tablet sustained-release 12 hr 150 mg PO BID Qty: 60 0RF aspirin 81 mg Tablet,Delayed Release (Dr/Ec) 81 mg PO DAILY Qty: 90 0RF nitroglycerin 0.4 mg Tablet, Sublingual 0.4 mg sublingual Q5M PRN (Reason: Chest Pain) Qty: 30 3RF metoprolol succinate 25 mg Tablet Extended Release 24 Hr 25 mg PO DAILY Qty: 90 3RF ticagrelor [Brilinta] 90 mg Tablet 90 mg PO BID Qty: 180 3RF atorvastatin [Lipitor] 80 mg tablet 80 mg PO DAILY Qty: 90 3RF Discharge Orders: Discharge ED (Routine); Ordered 08/09/24 Ordered By: Jamshid Rice Referrals: Dina Velez MD [Primary Care Provider, Family Practice] Discharge Diet: Usual diet Discharge Activity: Increase activity as tolerated Patient Instructions: Opioid Safety, Pain Management Activity Restrictions/Additional Instructions: Thank you for choosing [facility] for your healthcare needs today. It is very important that you follow up as instructed or that you return to the Emergency Department should you have concerns or if your condition changes or worsens in any way. You were seen in the emergency room with complaints of shortness of breath and some chest discomfort. Your cardiac enzymes remained within the normal limits. I discussed your case with the processes chemical design engineer on-call and they recommend that we add isosorbide mononitrate 30 mg once a day and switch you from Brilinta (which can cause shortness of breath) due to Plavix. You are given initial loading dose in the emergency room and should start 75 mg of Plavix once a day tomorrow. Contact cardiology clinic for follow-up within the next 1 to 2 weeks. Print Language: Turkish Coding Level of Care Code ED Restaurant Operations Manager for Alexandra Perez
[2024-08-09 07:48] LABS: Basophils # 0.1 10^3/uL (0.0-0.1); Basophils % 1.1 %; Eosinophils # 0.2 10^3/uL (0.0-0.8); Eosinophils % 2.2 %; Hematocrit 44.3 % (36-47); Lymphocytes # 2.2 10^3/uL (0.8-4.8); Lymphocytes % 23.9 %; Mean Corpuscular HGB Conc 32.7 g/dL (30-55); Mean Corpuscular Hemoglobin 32.2 pg (27-33); Mean Corpuscular Volume 98.2 fl (85-98); Mean Platelet Volume 9.7 fL (7.4-10.4); Monocytes # 0.7 10^3/uL (0.2-0.9); Neutrophils # 5.89 10^3/uL (1.8-7.7); Neutrophils % 63.8 %; Nucleated Red Blood Cells % 0 %; Platelet Count 359 10^3/cmm (157-399); Red Blood Count 4.51 10^6/uL (3.85-5.65); Red Cell Distribution Width 15.3 % (12.1-15.1); White Blood Count 9.23 10^3/uL (3.29-11.43)
[2024-08-09 08:07] LABS: Alanine Aminotransferase 32 U/L (0-33); Albumin Level 4.5 g/dL (3.5-5.2); Alkaline Phosphatase 116 U/L (35-105); Blood Urea Nitrogen 14 mg/dL (6-20); Calcium 9.9 mg/dL (8.5-10.5); Carbon Dioxide 21 mmol/L (22-29); Chloride 103 mmol/L (98-107); Creatinine Clr Calc Pharmacy 114.0937; Glomerular Filtration Rate 87.9 mL/min (90-130); Glucose 181 mg/dL (65-115); Osmolality Calculated 301 mOsm/kg (285-295); Sodium 143 mmol/L (136-145); Total Bilirubin 0.9 mg/dL (0.15-1.2); Total Protein 7.5 g/dL (6.6-8.7)
[2024-08-09 08:08] LABS: Troponin(5th) Baseline < 6 ng/L (0-10)
[2024-08-09 08:11] LABS: Anion Gap 22.7 (5-19); Aspartate Amino Transferase 34 U/L (0-32); Potassium 3.7 mmol/L (3.5-5.1)
[2024-08-09] MEDS: FUROsemide 10 mg/mL SDV 10mL 60 MG IVP (08:23)
[2024-08-09 08:30] VITALS: BP 158/96; PULSE 84; O2SAT 95
[2024-08-09] MEDS: ondansetron 2 mg/ML SDV 2 mL 4 MG IVP (08:35)
[2024-08-09 08:42] LABS: NT Pro B Type Natriuretic Pept 164 pg/mL (0-125)
[2024-08-09 09:00] VITALS: BP 142/85; PULSE 92; RESP 19; O2SAT 94
[2024-08-09] MEDS: isosorbide mononitrate ER 30 mg Tablet PO (09:02)
--- NOTE | 2024-08-09 09:45 | ECG_ITS ---
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
[2024-08-09 10:05] LABS: Troponin 5 2HR 10.36 ng/L (0-10); Troponin 5 2HR Delta 4.36001 ABS# (0-10)
[2024-08-09 10:30] VITALS: BP 141/91; PULSE 105; RESP 15; O2SAT 98
[2024-08-09] MEDS: clopidogrel 300 mg Tablet 600 MG PO (10:34)
== END 2024-08-09 10:37 | disposition home or self-care (01) ==
PROVIDERS: Emergency Provider Family Medicine; PCP Family Medicine
DX: T50.905A Adverse effect of unspecified drugs, medicaments and biological substances, initial encounter (principal); I25.10 Atherosclerotic heart disease of native coronary artery without angina pectoris; I10 Essential (primary) hypertension; Z79.82 Long term (current) use of aspirin; F17.210 Nicotine dependence, cigarettes, uncomplicated; X58.XXXA Exposure to other specified factors, initial encounter
CPT/HCPCS: 36415; 71045; 80053; 83880; 84484; 85025; 93005; 96374; 96375; 99285; J1938; J2405; J9999

== ENCOUNTER 2024-10-05 12:09 | Emergency (ER) | payer OTHER, SELFPAY ==
--- OUTSIDE RECORDS SUMMARY | 2024-10-05 12:13 | XMS_ITS | Clinical Summary ---
Author Organization [facility] Address [address] [facility] [place] [address] Care Team Providers Care Bottom Liner Name Role Phone Unavailable Primary Care Provider Unavailabl e Social History Tobacco Use Types Packs/Day Years Used Date Smoking Tobacco: Never Assessed Comments Unknown Sex and Gender Information Value Date Recorded Sex Assigned at Not on file Legal Sex Female 2:33 AM PRICING INTERN Gender Identity Not on file Sexual Orientation Not on file Plan of Treatment Health Maintenance Due Date Last Done Comments DTAP/TDAP/TD VACCINES (1 - Tdap) 10/19/1990 HEPATITIS B VACCINES (1 of 3 - 19+ 3-dose series) 11/1990 HPV/Cotest (21-29) 10/19/1992 CERVICAL CANCER SCREENING 10/19/2001 HPV/Cotest (30-65) 10/19/2001 PAP SMEAR 10/19/2001 BREAST CANCER SCREENING 2011 COLORECTAL SCREENING 10/19/2016 Colorectal Cancer Screening 10/19/2016 FIT-DNA Q 3 years 10/19/2016 FIT/FOBT Q 1 year 10/19/2016 Flex Sig/CT Colonography Q 5 years 10/19/2016 ZOSTER VACCINE (1 of 2) 10/19/2021 INFLUENZA VACCINE (#1) 2024
--- OUTSIDE RECORDS SUMMARY | 2024-10-05 12:13 | XMS_ITS | Encounter Summary ---
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
--- OUTSIDE RECORDS SUMMARY | 2024-10-05 12:13 | XMS_ITS | Encounter Summary ---
Author Organization [facility] Address [address] [facility] Attn: [place] [address] Care Team Providers Care Equipment Lead Name Role Phone Unavailable Primary Care Provider Unavailabl e Encounter Details Date Type Department Care Team (Late st Contact Info) Description 12/01/1999 Outpatient Historical [facility] Frandy H NO ADDRESS ON FILE Social History Tobacco Use Types Packs/Day Years Used Date Smoking Tobacco: Never Assessed Comments Unknown Sex and Gender Information Value Date Recorded Sex Assigned at Not on file 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
--- OUTSIDE RECORDS SUMMARY | 2024-10-05 12:13 | XMS_ITS | Clinical Summary ---
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
[2024-10-05 12:29] VITALS: BP 135/79; PULSE 100; RESP 17; TEMP 36.7; O2SAT 98; BMI 34.4
[2024-10-05 13:34] LABS: Hematocrit 40.4 % (36-47); Hemoglobin 13.10 g/dL (11.27-16.99); Mean Corpuscular HGB Conc 32.4 g/dL (30-55); Mean Corpuscular Hemoglobin 32.2 pg (27-33); Mean Corpuscular Volume 99.3 fl (85-98); Nucleated Red Blood Cells % 0 %; Platelet Count 338 10^3/cmm (157-399); Red Blood Count 4.07 10^6/uL (3.85-5.65); White Blood Count 6.14 10^3/uL (3.29-11.43)
[2024-10-05 13:53] LABS: Alanine Aminotransferase 98 U/L (0-33); Albumin Level 3.8 g/dL (3.5-5.2); Alkaline Phosphatase 134 U/L (35-105); Anion Gap 18.2 (5-19); Aspartate Amino Transferase 70 U/L (0-32); Blood Urea Nitrogen 5 mg/dL (6-20); Calcium 9.4 mg/dL (8.5-10.5); Carbon Dioxide 24 mmol/L (22-29); Chloride 100 mmol/L (98-107); Creatinine Clr Calc Pharmacy 114.0937; Globulin 3.4 g/dL (1.3-4.6); Glucose 206 mg/dL (65-115); Osmolality Calculated 291 mOsm/kg (285-295); Potassium 3.2 mmol/L (3.5-5.1); Sodium 139 mmol/L (136-145); Total Protein 7.2 g/dL (6.6-8.7)
--- NOTE | 2024-10-05 14:54 | CTR_ITS ---
PROCEDURE INFORMATION: Exam: CT Abdomen And Pelvis With Contrast Exam date and time: 10/05/2024 3:04 PM Age: 53 years old Clinical indication: Abdominal tenderness and other: Abd pain/diarrhea; Prior surgery; Surgery date: 6+ months; Surgery type: Hysto TECHNIQUE: Imaging protocol: Computed tomography of the abdomen and pelvis with contrast. Radiation optimization: All CT scans at this facility use at least one of these dose optimization techniques: automated exposure control; mA and/or kV adjustment per patient size (includes targeted exams where dose is matched to clinical indication); or iterative reconstruction. Contrast material: OMNI 350; Contrast volume: 100 ml; Contrast route: INTRAVENOUS (IV); COMPARISON: CR XR sacroiliac jts m 3V [id number] 07/20/2023 11:40 AM RADIATION DOSE METRICS: Total DLP (mGy-cm): 1013.63 FINDINGS: Lungs: Visualized lung bases appear clear, without infiltrate or effusion. Diaphragm: Very small hiatal hernia is seen. Liver: Area of low-density appearance adjacent to the falciform ligament within the right lobe of the liver, likely focal fatty change though can not completely exclude other abnormality such as mildly complex cyst or hemangioma. Liver is otherwise unremarkable. Gallbladder and biliary ducts: Gallbladder is not well distended, without calcified gallstone. No significant biliary ductal dilatation. Pancreas: Normal. No ductal dilation. Spleen: Normal. No splenomegaly. Adrenal glands: Normal. No mass. Kidneys and ureters: Kidneys appear unremarkable. No urinary tract stone or obstructive uropathy or perinephric stranding. Stomach and bowel: No bowel obstruction. Incomplete colonic distension limiting its evaluation. Partial fluid content within distal small bowel and right colon, which can be seen with diarrhea. No significant mild thickening or associated mesenteric stranding. Appendix: The appendix is seen. No evidence of appendicitis. Intraperitoneal space: No free fluid or ascites or fluid collection. No free air. Vasculature: Dijg-[id number] atherosclerotic calcification of the abdominal aorta and iliac arteries without aneurysmal dilatation. Lymph nodes: Unremarkable. No enlarged lymph nodes. Urinary bladder: Unremarkable as visualized. Reproductive: Previous hysterectomy. Bones/joints: Degenerative change with component of degenerative disc disease lumbar spine L2-L3 and L4-L5 levels, more prominent L2-L3 level with associated endplate sclerosis changes. Soft tissues: Mild diastasis rectus at the umbilicus. CT/CT abdomen pelvis w con* [id number] IMPRESSION: 1. Previous hysterectomy. 2. Partial fluid content distal small bowel and right colon, which can be seen with diarrhea. 3. Area of low-density appearance adjacent to the falciform ligament within the right lobe of the liver, likely focal fatty change though other focal abnormality not excluded. Consider correlation with follow-up nonemergent ultrasound initially. 4. Degenerative change lumbar spine and [id number] atherosclerotic vascular calcification of the abdominal aorta and iliac arteries. 5. Very small hiatal hernia.
--- NOTE | 2024-10-05 14:57 | ED_ITS ---
HPI - Nausea/Vomiting/Diarrhea 2 General: Chief complaint: Nausea/Vomiting/Diarrhea Stated complaint: diarhea Time Seen by Provider: 10/05/24 14:46 Source: patient Mode of arrival: ambulatory Limitations: no limitations History of Present Illness: 53-year-old female states that she been having nausea along with diarrhea that been going on for a month. States she been having abdominal cramping along with some malaise. She denies any fevers denies any severe pain she denies any worse improving factors. Associated nausea: Yes Associated symtoms: Reports nausea; Denies chest pain or headache(s) Related Data Home Medications ?Medication ?Instructions ?Recorded ?Confirmed hydroxyzine HCl 25 mg tablet 25 mg PO TID PRN Anxiety 08/27/24 10/05/24 atorvastatin 40 mg tablet 80 mg PO QPM 10/05/24 Previous Rx's ?Medication ?Instructions ?Recorded citalopram 40 mg tablet 40 mg PO DAILY mental health #90 07/03/24 tabs hydroxychloroquine 200 mg tablet 200 mg PO BID #180 ta bs 07/15/24 leflunomide 20 mg tablet 20 mg PO DAILY #90 tabs 05/08/04 prednisone 5 mg tablet 5 mg PO QDAY #90 tabs metoprolol succinate 25 mg 25 mg PO DAILY #90 tabs 12/05 tablet,extended release 24 hr nitroglycerin 0.4 mg sublingual 0.4 mg sublingual Q5M PRN Chest 07/19/24 tablet Pain #30 tabs gabapentin 100 mg capsule See Rx Instructions .Route 0 07/23/24 .COMPLEX chronic pain #120 caps isosorbide mononitrate 30 mg 30 mg PO DAILY #30 tabs 0 08/09/24 tablet,extended release 24 hr clopidogrel 75 mg tablet (Plavix) 75 mg PO DAILY #90 t abs 08/27/24 tramadol 50 mg tablet 50 mg PO BID PRN pain (scale score 09/04/24 7-10) #60 tabs baclofen 10 mg tablet 10 mg PO TID PRN muscle spas m #90 09/23/24 tabs terbinafine HCl 250 mg tablet 250 mg PO DAILY #30 tabs 10/04/24 ondansetron 4 mg disintegrating 4 mg PO Q6H PRN nausea and 10/05/24 tablet vomiting #14 tabs ondansetron 4 mg disintegrating 4 mg PO Q6H PRN nausea and 10/05/24 tablet vomiting #14 tabs Allergies Allergy/AdvReac Type Severity Reaction Status Date / Time No Known Allergies Allergy Verified 10/04/24 09:40 Review of Systems 2 Const: Denies: fever(s), chills, body aches or change in appetite ENMT: Denies: throat pain or dental pain Card: Denies: chest pain Resp: Denies: dyspnea GI: Reports: nausea and diarrhea; Denies: abdominal pain or vomiting Musc: Denies: neck pain or back pain Skin/Breast: Denies: rash Neuro: Denies: headache(s) PFSH ED 2 PFSH: Medical History Tinea corporis Abnormal stress test Nicotine dependence, cigarettes, uncomplicated Vitamin D deficiency Seronegative rheumatoid arthritis of both hands High risk medication use Inflammatory arthritis seeing rheumatology Muscle spasms of both lower extremities Arthralgia of multiple joints Onychomycosis Equinus contracture of right ankle Equinus contracture of left ankle Ulnar nerve neuropathy Heel pain, chronic Depression Anxiety Surgical History Hx of foot surgery right foot for plantar fasciitis History of hysterectomy with bilateral oophorectomy done for cervical dysplasia H/O LEEP Family History Mother CAD (coronary artery disease) Grandmother Dementia Father CAD (coronary artery disease) Gout Other Hyperlipidemia Hypertension Social History Smoking and tobacco/nicotine status: never used tobacco/nicotine Alcohol intake: never Substance/Drug Use: former Date of last use: 20 yrs ago for meth Former substance use details: 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; currently does marijuana Household members: significant other Marital status: Number of children: 2 Highest education level completed: High School Graduate Current occupational status: employed Previous occupational history: [employer] Physical Exam 2 Const: COMMON NORMALS: no acute distress, patient oriented x3 and healthy appearing HENMT: COMMON NORMALS: normocephalic and atraumatic HEAD & SCALP: n ormocephalic and atraumatic Eye: COMMON NORMALS: conjunctivae normal CONJUNCTIVA: Yes conjunctivae normal Neck/C-Spine: COMMON NORMALS: full ROM and supple Chest: COMMONS NORMALS: normal inspection of the chest Resp: COMMON NORMALS: normal respiratory effort Cardio: COMMON NORMALS: regular rate, regular rhythm and No murmurs present (Cardio) RATE: regular rate RHYTHM: regular rhythm GI: COMMON NORMALS: Normal to inspection, nondistended, normoactive bowel sounds present, Soft to palpation, non-tender and no masses PALPATION: Yes Soft to palpation Extremity: COMMON NORMALS: normal to inspection and full ROM Neuro: COMMON NORMALS: patient oriented x3, moves all extremities and no focal motor deficits Psych: COMMON NORMALS: mental status grossly normal, Normal thought process present and cooperative THOUGHT PROCESS: Normal thought process present Skin: COMMON NORMALS: no rashes or lesions noted and no wounds GENERAL SKIN EXAM: no rashes or lesions noted Course 2 Vital Signs: Vital signs: Vital Signs Temperature 98.0 F 10/05/24 12:29 Pulse Rate 83 10/05/24 15:49 Respiratory Rate 16 10/05/24 15:49 Blood Pressure 147/117 10/05/24 15:49 Pulse Oximetry 98 10/05/24 15:49 Oxygen Delivery Me thod Room Air 10/05/24 12:29 MDM - Nausea/Vomiting/Diarrhea Medical Decision Making Patient presents here with diarrhea along with nausea CT showed no acute findings white counts normal no signs of C. difficile at this time she feels improved here we will start her on Imodium along with Zofran she is follow-up with PCP return if worsening. Medical Records I reviewed the patient's medical records. Lab Data I reviewed the patient's lab results. 10/05/24 13:29 10/05/24 13:29 Radiology Impressions Abdomen/Pelvis CT 10/05/24 14:54 IMPRESSION: 1. Previous hysterectomy. 2. Partial fluid content distal small bowel and right colon, which can be seen with diarrhea. 3. Area of low-density appearance adjacent to the falciform ligament within the right lobe of the liver, likely focal fatty change though other focal abnormality not excluded. Consider correlation with follow-up nonemergent ultrasound initially. 4. Degenerative change lumbar spine and epuk-ox-vcphyfmr atherosclerotic vascular calcification of the abdominal aorta and iliac arteries. 5. Very small hiatal hernia. Laboratory Results WBC 6.14 10^3/uL (3.29-11.43) 10/05/24 13:29 RBC 4.07 10^6/uL (3.85-5.65) 10/05/24 13:29 Hgb 13.10 g/dL (11.27-16.99) 10/05/24 13:29 Hct 40.4 % (36-47) 10/05/24 13:29 MCV 99.3 fl (85-98) H 10/05/24 13:29 MCH 32.2 pg (27-33) 10/05/24 13:29 MCHC 32.4 g/dL (30-55) 10/05/24 13:29 RDW 13.5 % (12.1-15.1) 10/05/24 13:29 Plt Count 338 10^3/cmm (157-399) 10/05/24 13:29 MPV 9.4 fL (7.4-10.4) 10/05/24 13:29 Neut % (Auto) 52.6 % 10/05/24 13:29 Lymph % (Auto) 29.3 % 10/05/24 13:29 [place] % (Auto) 11.9 % 10/05/24 13:29 Eos % (Auto) 4.4 % 10/05/24 13:29 Baso % (Auto) 1.3 % 10/05/24 13:29 Neut # (Auto) 3.23 10^3/uL (1.8-7.7) 10/05/24 13:29 Lymph # (Auto) 1.8 10^3/uL (0.8-4.8) 10/05/24 13:29 [place] # (Auto) 0.7 10^3/uL (0.2-0.9) 10/05/24 13:29 Eos # (Auto) 0.3 10^3/uL (0.0-0.8) 10/05/24 13:29 Baso # (Auto) 0.1 10^3/uL (0.0-0.1) 10/05/24 13:29 Nucleated RBC % (auto) 0 % 10/05/24 13:29 Nucleated RBCs # 0.0 /100WBC 10/05/24 13:29 Sodium 139 mmol/L (136-145) 10/05/24 13:29 Potassium 3.2 mmol/L (3.5-5.1) L 10/05/24 13:29 Chloride 100 mmol/L (98-107) 10/05/24 13:29 Carbon Dioxide 24 mmol/L (22-29) 10/05/24 13:29 Anion Gap 18.2 (5-19) 10/05/24 13:29 BUN 5 mg/dL (6-20) L 10/05/24 13:29 Creatinine 0.7 mg/dL (0.5-0.9) 10/05/24 13:29 GFR Calculation 87.9 mL/min (90-130) L 10/05/24 13:29 Glucose 206 mg/dL (65-115) H 10/05/24 13:29 Calculated Osmolality 291 mOsm/kg (285-295) 10/05/24 13:29 Calcium 9.4 mg/dL (8.5-10.5) 10/05/24 13:29 Total Bilirubin 0.5 mg/dL (0.15-1.2) 10/05/24 13:29 AST 70 U/L (0-32) H 10/05/24 13:29 ALT 98 U/L (0-33) H 10/05/24 13:29 Alkaline Phosphatase 134 U/L (35-105) H 10/05/24 13:29 Total Protein 7.2 g/dL (6.6-8.7) 10/05/24 13:29 Albumin 3.8 g/dL (3.5-5.2) 10/05/24 13:29 Globulin 3.4 g/dL (1.3-4.6) 10/05/24 13:29 All radiology interpretation(s) finalized by discharge Discharge Plan Discharge Patient Disposition: Home Clinical Impression: Diarrhea, Nausea Condition: Stable Prescriptions: New ondansetron 4 mg tablet,disintegrating 4 mg PO Q6H PRN (Reason: nausea and vomiting) Qty: 14 0RF ondansetron 4 mg tablet,disintegrating 4 mg PO Q6H PRN (Reason: nausea and vomiting) Qty: 14 0RF No Action hydroxychloroquine 200 mg tablet 200 mg PO BID Qty: 180 1RF leflunomide 20 mg tablet 20 mg PO DAILY Qty: 90 1RF prednisone 5 mg tablet 5 mg PO QDAY Qty: 90 1RF terbinafine HCl 250 mg tablet 250 mg PO DAILY Qty: 30 0RF hydroxyzine HCl 25 mg tablet 25 mg PO TID PRN (Reason: Anxiety) clopidogrel [Plavix] 75 mg tablet 75 mg PO DAILY Qty: 90 3RF citalopram 40 mg tablet 40 mg PO DAILY Qty: 90 1RF gabapentin 100 mg capsule See Rx Instructions .ROUTE .COMPLEX Qty: 120 3RF Rx Instructions: Take 1 tablet by mouth in the morning, 1 tablet at mid day and 2 tablets at bedtime. tramadol 50 mg tablet 50 mg PO BID PRN (Reason: pain (scale score 7-10)) Qty: 60 0RF baclofen 10 mg tablet 10 mg PO TID PRN (Reason: muscle spasm) Qty: 90 3RF nitroglycerin 0.4 mg Tablet, Sublingual 0.4 mg sublingual Q5M PRN (Reason: Chest Pain) Qty: 30 3RF metoprolol succinate 25 mg Tablet Extended Release 24 Hr 25 mg PO DAILY Qty: 90 3RF isosorbide mononitrate 30 mg tablet extended release 24 hr 30 mg PO DAILY Qty: 30 0RF atorvastatin 40 mg tablet 80 mg PO QPM Discharge Orders: Discharge ED (Routine); Ordered 10/05/24 Ordered By: Dre Deal Referrals: Dina Velez MD [Primary Care Provider, Family Practice] - 4-7 days Discharge Diet: Advance as tolerated Discharge Activity: Resume usual activity Patient Instructions: Acute Diarrhea (ED) Print Language: Macedonian Coding Level of Care Code ED Stonecutter Apprentice Hand for Alexandra Perez
[2024-10-05] MEDS: iohexol 350 mg/mL 500 mL Btl (per mL) IV (15:10)
[2024-10-05] MEDS: ondansetron 2 mg/ML SDV 2 mL 4 MG IVP (15:23)
[2024-10-05 15:49] VITALS: BP 147/117; PULSE 83; RESP 16; O2SAT 98
[2024-10-05 17:14] VITALS: BP 157/98; PULSE 77; RESP 16; O2SAT 99
== END 2024-10-05 17:12 | disposition home or self-care (01) ==
PROVIDERS: Emergency Provider Emergency Medicine; PCP Family Medicine
DX: R19.7 Diarrhea, unspecified (principal); R11.0 Nausea; Z79.02 Long term (current) use of antithrombotics/antiplatelets
CPT/HCPCS: 36415; 74177; 80053; 85025; 96374; 99285; J2405; J7030; J9999

== ENCOUNTER 2024-10-25 10:04 | Emergency (ER) | payer OTHER, SELFPAY ==
--- NOTE | 2024-10-25 10:08 | ECG_ITS ---
[email or web address] Date: 2024-10-25 Pat Name: Lore Verduzco Department: Room: Gender: Female Manager Event: : 1970 Requested By: Dre Deal Order Number: [id number] Sergio MD: Ahsan Hidalgo M.D. Measurements Intervals [place] Rate: 81 P: 35 [place]: 137 QRS: 45 QRSD: 77 T: 55 QT: 371 QTc: 432 Interpretive Statements SINUS RHYTHM NONSPECIFIC T-WAVE ABNORMALITY Compared to ECG 08/09/2024 09:45:06 T-wave abnormality now present Electronically Signed On 10-25-2024 14:07:03 CDT by Ahsan Hidalgo M.D. [email or web address]
[2024-10-25 10:10] VITALS: BP 135/83; PULSE 83; RESP 16; TEMP 36.5; O2SAT 99
--- OUTSIDE RECORDS SUMMARY | 2024-10-25 10:14 | XMS_ITS | Clinical Summary ---
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
--- OUTSIDE RECORDS SUMMARY | 2024-10-25 10:14 | XMS_ITS | Clinical Summary ---
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
--- OUTSIDE RECORDS SUMMARY | 2024-10-25 10:14 | XMS_ITS | Encounter Summary ---
Author Organization [facility] Address [address] [place] [address] Care Team Providers Care Pack Mule Worker Name Role Phone Unavailable Primary Care Provider Unavailabl e Encounter Details Date Type Department Care Team (Latest Contact Info) Description 11/29/1999 Outpatient Historical [facility] Frandy Vu NO ADDRESS ON FILE Abn Pap Smear-Cervix (Primary Dx) Social History Tobacco Use Types Packs/Day Years Used Date Smoking Tobacco: Never Assessed Comments Unknown Sex and Gender Information Value Date Recorded Sex Assigned at Not on file Legal Sex Female 2:52 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
--- OUTSIDE RECORDS SUMMARY | 2024-10-25 10:14 | XMS_ITS | Encounter Summary ---
Author Organization [facility] Address [address] [facility] Attn: [place] [address] Care Team Providers Care Operations Logistics Analyst Name Role Phone Unavailable Primary Care Provider [...] on file Legal Sex Female 2:52 AM APPEALS REFEREE Gender Identity Not on file Sexual Orientation Not on file documented as of this encounter Plan of Treatment Not on file documented as of this encounter Visit Diagnoses Not on filedocumented in this encounter
--- NOTE | 2024-10-25 10:53 | XR_ITS ---
WS: [id number] Portable AP upright chest, 10/25/2024 Clinical Data: cp Comparison: Portable chest, 08/09/2024 Findings: No nodules, masses or effusions are seen. The heart is normal. The pulmonary vascularity is not increased. No pneumonia or pneumothorax is seen. Monitor leads are on the chest wall. XR/XR chest 1V portable [id number] Impression: Negative chest.
--- NOTE | 2024-10-25 11:10 | W.ED.CHESTPA ---
HPI - Chest Pain General: Chief Complaint: Chest Pain Stated Complaint: Chest Pain SOB high BP Time Seen by Provider: 10/25/24 11:06 History of Present Illness: 54-year-old female presents emergency room with shortness of breath elevated blood pressure. States began this morning while she was at work and around 730 she taken 3 nitro. She had a cardiac stent a month ago has been taking her Mae chest pain. No vomiting or diarrhea no diaphoresis. Associated symptoms: Deny abdominal pain, dyspnea or fever(s) Related Data Home Medications ?Medication ?Instructions ?Recorded ?Confirmed hydroxyzine HCl 25 mg tablet 25 mg PO TID PRN Anxiety 08/27/24 10/25/24 atorvastatin 40 mg tablet 80 mg PO QPM 10/05/24 10/25/24 Previous Rx's ?Medication ?Instructions ?Recorded citalopram 40 mg tablet 40 mg PO DAILY mental health #90 07/03/24 tabs hydroxychloroquine 200 mg tablet 200 mg PO BID #180 tabs 07/15/24 leflunomide 20 mg tablet 20 mg PO DAILY #90 tabs 07/15/24 prednisone 5 mg tablet 5 mg PO QDAY #90 tabs 07/15/24 metoprolol succinate 25 mg 25 mg PO DAILY #90 tabs 07/19/24 tablet,extended release 24 hr nitroglycerin 0.4 mg sublingual 0.4 mg sublingual Q5M PRN Chest 07/19/24 tablet Pain #30 tabs gabapentin 100 mg capsule See Rx Instructions .Route 07/23/24 .COMPLEX chronic pain #120 caps clopidogrel 75 mg tablet (Plavix) 75 mg PO DAILY #90 tabs 08/27/24 tramadol 50 mg tablet 50 mg PO BID PRN pain (scale score 09/04/24 7-10) #60 tabs baclofen 10 mg tablet 10 mg PO TID PRN muscle spasm #90 09/23/24 tabs terbinafine HCl 250 mg tablet 250 mg PO DAILY #30 tabs 10/04/24 isosorbide mononitrate 60 mg 60 mg PO DAILY #30 tabs 10/25/24 tablet,extended release 24 hr Allergies Allergy/AdvReac Type Severity Reaction Status Date / Time No Known Allergies Allergy Verified 10/04/24 09:40 Review of Systems Const: Denies: fever(s) or chills Card: Reports: chest pain Resp: Denies: dyspnea GI: Denies: abdominal pain : Denies: dysuria, urinary frequency or urinary urgency Musc: Denies: neck pain or back pain Skin/Breast: Denies: rash PFSH ED PFSH: Medical History Tinea corporis Abnormal stress test Nicotine dependence, cigarettes, uncomplicated Vitamin D deficiency Seronegative rheumatoid arthritis of both hands High risk medication use Inflammatory arthritis seeing rheumatology Muscle spasms of both lower extremities Arthralgia of multiple joints Onychomycosis Equinus contracture of right ankle Equinus contracture of left ankle Ulnar nerve neuropathy Heel pain, chronic Depression Anxiety Surgical History Hx of foot surgery right foot for plantar fasciitis History of hysterectomy with bilateral oophorectomy done for cervical dysplasia H/O LEEP Family History Mother CAD (coronary artery disease) Grandmother Dementia Father CAD (coronary artery disease) Gout Other Hyperlipidemia Hypertension Social History Smoking and tobacco/nicotine status: never used tobacco/nicotine Alcohol intake: never Substance/Drug Use: former Date of last use: 20 yrs ago for meth Former substance use details: 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; currently does marijuana Household members: significant other Marital status: Number of children: 2 Highest education level completed: High School Graduate Current occupational status: employed Previous occupational history: [employer] Physical Exam Const: GENERAL APPEARANCE: cooperative ORIENTATION/CONSCIOUSNESS: Yes awake, Yes oriented to person, Yes oriented to place and Yes oriented to time HENMT: COMMON NORMALS: normocephalic, atraumatic and hearing grossly normal bilaterally HEAD & SCALP: normocephalic and atraumatic Resp: COMMON NORMALS: normal respiratory effort, No retractions, No use of accessory muscles and clear to auscultation bilaterally AUSCULTATION: clear to auscultation bilaterally Cardio: COMMON NORMALS: regular rate, regular rhythm and No murmurs present (Cardio) RATE: regular rate RHYTHM: regular rhythm GI: COMMON NORMALS: Soft to palpation and No hepatosplenomegaly present AUSCULTATION: Yes normoactive bowel sounds PALPATION: Yes Soft to palpation, No Tenderness to palpation present (GI), No Guarding due to palpation present (GI) and Yes No hepatosplenomegaly present Extremity: COMMON NORMALS: normal to inspection, capillary refill normal, no clubbing, cyanosis or edema, no calf tenderness and no pedal edema Neuro: SENSORIUM/ORIENTATION: Yes oriented to person, Yes oriented to place and Yes oriented to time Skin: COMMON NORMALS: no rashes or lesions noted GENERAL SKIN EXAM: no rashes or lesions noted Course Vital Signs: Vital signs: Vital Signs Temperature 97.7 F 10/25/24 10:10 Pulse Rate 68 10/25/24 14:29 Respiratory Rate 15 10/25/24 12:37 Blood Pressure 158/95 10/25/24 14:29 Pulse Oximetry 98 10/25/24 14:29 Oxygen Delivery Me thod Room Air 10/25/24 12:37 MDM - Chest Pain Medical Decision Making EKGs cardiac enzymes are discussed with Dr. Page who is called. Increase her isosorbide to 60 mg daily follow-up with cardiology clinic later this week Medical Records I reviewed the patient's medical records. Lab Data I reviewed the patient's lab results. 10/25/24 11:16 10/25/24 11:16 Radiology Impressions Chest X-Ray 10/25/24 10:53 Impression: Negative chest. Laboratory Results WBC 7.81 10^3/uL (3.29-11.43) 10/25/24 11:16 RBC 4.19 10^6/uL (3.85-5.65) 10/25/24 11:16 Hgb 13.50 g/dL (11.27-16.99) 10/25/24 11:16 Hct 40.3 % (36-47) 10/25/24 11:16 MCV 96.2 fl (85-98) 10/25/24 11:16 MCH 32.2 pg (27-33) 10/25/24 11:16 MCHC 33.5 g/dL (30-55) 10/25/24 11:16 RDW 13.2 % (12.1-15.1) 10/25/24 11:16 Plt Count 341 10^3/cmm (157-399) 10/25/24 11:16 MPV 9.7 fL (7.4-10.4) 10/25/24 11:16 Neut % (Auto) 58.9 % 10/25/24 11:16 Lymph % (Auto) 21.9 % 10/25/24 11:16 [place] % (Auto) 13.3 % 10/25/24 11:16 Eos % (Auto) 4.2 % 10/25/24 11:16 Baso % (Auto) 1.3 % 10/25/24 11:16 Neut # (Auto) 4.60 10^3/uL (1.8-7.7) 10/25/24 11:16 Lymph # (Auto) 1.7 10^3/uL (0.8-4.8) 10/25/24 11:16 [place] # (Auto) 1.0 10^3/uL (0.2-0.9) H 10/25/24 11:16 Eos # (Auto) 0.3 10^3/uL (0.0-0.8) 10/25/24 11:16 Baso # (Auto) 0.1 10^3/uL (0.0-0.1) 10/25/24 11:16 Nucleated RBC % (auto) 0 % 10/25/24 11:16 Nucleated RBCs # 0.0 /100WBC 10/25/24 11:16 PT 12.90 SECONDS (12.1-14.9) 10/25/24 11:16 INR 0.91 (0.8-1.2) 10/25/24 11:16 Sodium 138 mmol/L (136-145) 10/25/24 11:16 Potassium 3.8 mmol/L (3.5-5.1) 10/25/24 11:16 Chloride 100 mmol/L (98-107) 10/25/24 11:16 Carbon Dioxide 23 mmol/L (22-29) 10/25/24 11:16 Anion Gap 18.8 (5-19) 10/25/24 11:16 BUN 6 mg/dL (6-20) 10/25/24 11:16 Creatinine 0.7 mg/dL (0.5-0.9) 10/25/24 11:16 GFR Calculation 87.5 mL/min (90-130) L 10/25/24 11:16 Glucose 108 mg/dL (65-115) 10/25/24 11:16 Calculated Osmolality 284 mOsm/kg (285-295) L 10/25/24 11:16 Calcium 9.9 mg/dL (8.5-10.5) 10/25/24 11:16 Total Bilirubin 0.6 mg/dL (0.15-1.2) 10/25/24 11:16 AST 36 U/L (0-32) H 10/25/24 11:16 ALT 33 U/L (0-33) 10/25/24 11:16 Alkaline Phosphatase 160 U/L (35-105) H 10/25/24 11:16 Troponin T Baseline < 6 ng/L (0-10) 10/25/24 11:16 Troponin T 120 Minute < 6.0 ng/L (0-10) 10/25/24 12:55 Delta Troponin T 0 ABS# (0-10) 10/25/24 12:55 Total Protein 7.1 g/dL (6.6-8.7) 10/25/24 11:16 Albumin 4.4 g/dL (3.5-5.2) 10/25/24 11:16 Globulin 2.7 g/dL (1.3-4.6) 10/25/24 11:16 Lipase 27 U/L (13-60) 10/25/24 11:16 All radiology interpretation(s) finalized by discharge EKG Data EKG 1: Interpretation: EKG 815 2024-12-18 normal sinus rhythm rate of 81 HI interval [address] elevation no T wave inversion no sign of any acute EKG changes. No changes compared to EKG from 11/09/2024 Discharge Plan Discharge Patient Disposition: Home Clinical Impression: Atypical chest pain Condition: Stable Prescriptions: New isosorbide mononitrate 60 mg tablet extended release 24 hr 60 mg PO DAILY Qty: 30 0RF Discontinued isosorbide mononitrate 30 mg tablet extended release 24 hr 30 mg PO DAILY Qty: 30 0RF No Action hydroxychloroquine 200 mg tablet 200 mg PO BID Qty: 180 1RF leflunomide 20 mg tablet 20 mg PO DAILY Qty: 90 1RF prednisone 5 mg tablet 5 mg PO QDAY Qty: 90 1RF terbinafine HCl 250 mg tablet 250 mg PO DAILY Qty: 30 0RF hydroxyzine HCl 25 mg tablet 25 mg PO TID PRN (Reason: Anxiety) clopidogrel [Plavix] 75 mg tablet 75 mg PO DAILY Qty: 90 3RF citalopram 40 mg tablet 40 mg PO DAILY Qty: 90 1RF gabapentin 100 mg capsule See Rx Instructions .ROUTE .COMPLEX Qty: 120 3RF Rx Instructions: Take 1 tablet by mouth in the morning, 1 tablet at mid day and 2 tablets at bedtime. tramadol 50 mg tablet 50 mg PO BID PRN (Reason: pain (scale score 7-10)) Qty: 60 0RF baclofen 10 mg tablet 10 mg PO TID PRN (Reason: muscle spasm) Qty: 90 3RF nitroglycerin 0.4 mg Tablet, Sublingual 0.4 mg sublingual Q5M PRN (Reason: Chest Pain) Qty: 30 3RF metoprolol succinate 25 mg Tablet Extended Release 24 Hr 25 mg PO DAILY Qty: 90 3RF atorvastatin 40 mg tablet 80 mg PO QPM Discharge Orders: Discharge ED (Routine); Ordered 10/25/24 Ordered By: Jamshid Rice Referrals: Dina Velez MD [Primary Care Provider, Family Practice] Patient Instructions: Opioid Safety, Pain Management, Patient Portal & Pepper Instructions Activity Restrictions/Additional Instructions: [facility]. It is very important that you follow up as instructed or that you return to the Emergency Department should you have concerns or if your condition changes or worsens in any way. You are seen emergency room with episode of chest pain. Your EKG did not show any acute changes and your cardiac enzymes are normal. Will set you up for outpatient Lexiscan sestamibi stress test and follow-up with cardiology. 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
[2024-10-25 11:17] VITALS: BP 160/96; PULSE 86; RESP 15; O2SAT 98
[2024-10-25 11:24] LABS: Hematocrit 40.3 % (36-47); Hemoglobin 13.50 g/dL (11.27-16.99); Mean Corpuscular HGB Conc 33.5 g/dL (30-55); Mean Corpuscular Hemoglobin 32.2 pg (27-33); Mean Corpuscular Volume 96.2 fl (85-98); Nucleated Red Blood Cells % 0 %; Platelet Count 341 10^3/cmm (157-399); Red Blood Count 4.19 10^6/uL (3.85-5.65); White Blood Count 7.81 10^3/uL (3.29-11.43)
[2024-10-25 11:39] LABS: INR 0.91 (0.8-1.2); Prothrombin Time 12.90 SECONDS (12.1-14.9)
[2024-10-25 11:44] LABS: Troponin(5th) Baseline < 6 ng/L (0-10)
[2024-10-25 11:47] LABS: Alanine Aminotransferase 33 U/L (0-33); Albumin Level 4.4 g/dL (3.5-5.2); Alkaline Phosphatase 160 U/L (35-105); Anion Gap 18.8 (5-19); Aspartate Amino Transferase 36 U/L (0-32); Blood Urea Nitrogen 6 mg/dL (6-20); Calcium 9.9 mg/dL (8.5-10.5); Carbon Dioxide 23 mmol/L (22-29); Chloride 100 mmol/L (98-107); Creatinine Clr Calc Pharmacy 112.7972; Globulin 2.7 g/dL (1.3-4.6); Glucose 108 mg/dL (65-115); Lipase 27 U/L (13-60); Osmolality Calculated 284 mOsm/kg (285-295); Potassium 3.8 mmol/L (3.5-5.1); Sodium 138 mmol/L (136-145); Total Protein 7.1 g/dL (6.6-8.7)
[2024-10-25 12:37] VITALS: BP 129/75; PULSE 71; RESP 15; O2SAT 96
--- NOTE | 2024-10-25 12:53 | ECG_ITS ---
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 Measurements Intervals [place] Rate: 70 P: 39 DC: 146 QRS: 53 QRSD: 81 T: 54 QT: 391 QTc: 424 Interpretive Statements SINUS RHYTHM NONSPECIFIC T-WAVE ABNORMALITY Compared to ECG 10/25/2024 10:08:45 No significant changes Electronically Signed On 10-25-2024 14:24:24 CDT by Ahsan Hidalgo M.D. [email or web address]
[2024-10-25 13:17] LABS: Troponin 5 2HR < 6.0 ng/L (0-10); Troponin 5 2HR Delta 0 ABS# (0-10)
[2024-10-25 14:29] VITALS: BP 158/95; PULSE 68; O2SAT 98
--- NOTE | 2024-10-31 10:19 | DCPLANNER ---
faxed outpatient lexiscan to scheduling
== END 2024-10-25 14:30 | disposition home or self-care (01) ==
PROVIDERS: Emergency Medicine; Emergency Provider Family Medicine; PCP Family Medicine
DX: R07.89 Other chest pain (principal)
CPT/HCPCS: 36415; 71045; 80053; 83690; 84484; 85025; 85610; 93005; 99285

== ENCOUNTER 2024-11-07 06:42 | Outpatient (CLI) | payer OTHER, SELFPAY ==
--- NOTE | 2024-11-07 | ECG_ITS ---
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 Interpretive Statements Procedure: A total of 0.4 mg of Lexiscan was infused over 20 seconds. The stress phase was continued for a total of 5 minutes. Sestamibi was injected 20 seconds after the Lexiscan infusion. Vital signs and ECG findings: Resting EKG???normal sinus rhythm heart rate 63 with possible old anterior infarction Stress EKG???no ST-T wave changes. Resting blood pressure was 126/77 with a heart rate of 63. After Lexiscan infusion the patient's blood pressure was 100 [id number]/72 with heart rate of 85 In recovery patient's blood pressure was 130/74 with a heart rate of 80. Conclusion: 1. Normal EKG response to Lexiscan infusion 2. No Lexiscan induced chest pain or cardiac arrhythmia. 3. Normal blood pressure and heart rate response. 4. Nuclear myocardial perfusion scan pending; see separate report. Electronically Signed On 11-07-2024 08:56:53 CDT by Ahsan Hidalgo M.D. [email or web address]
--- NOTE | 2024-11-07 07:03 | NMCV_ITS ---
NM kalee perf SPECT r/s* [id number] Lore Verduzco Age: 54 Gender: F : 1970 Exam Date: 11/07/2024 07:53 Ordering Phys: Jamshid Rice DO Technologist: CLYDE Tilley Exam Location: [facility] Indications: cp STRESS TEST Please see separate stress test report in [facility] for full findings IMAGE PROTOCOL Rest/Stress 1 Lexiscan Day Radiopharmaceutical Dose (mCi) Administration Site Administered by Rest: Tc-99m 11 IV CLYDE Moreno Sestamibi Stress:Tc-99m 33 IV CLYDE Tilley Sestamigiovanni Rest: 07-Nov-2024 60 Discovery 630 Stress: 07-Nov-2024 30 Discovery 630 0.4mg Lexiscan. Supine position only as patient was unable to lay prone. SPECT RESULTS Technical Quality: Good Raw Data Analysis: Normal Image Corrections: No attenuation or motion correction applied Summed Stress Score: 0 Summed Rest Score: 1 Summed Difference Score: 0 PERFUSION FINDINGS SPECT images demonstrate homogeneous tracer distribution throughout the myocardium. FUNCTIONAL RESULTS (calculated via Gated SPECT) Stress Image LV EF (%): 55 Stress EDV (mL):110 TID: 1.04 Stress ESV (mL):50 FUNCTIONAL FINDINGS: There is normal left ventricular systolic function, EF 55%. IMPRESSIONS Myocardial perfusion imaging is normal. Ahsan Hidalgo MD, FACC (Electronically Signed) Final Date: 07 November 2024 14:20 S
[2024-11-07 07:09] VITALS: BMI 34.4
[2024-11-07 08:37] VITALS: BP 130/72; PULSE 87
== END 2024-11-07 06:43 | disposition home or self-care (01) ==
LOC: CDL 06:44
PROVIDERS: PCP Family Medicine; Visit Provider Family Medicine
DX: R07.9 Chest pain, unspecified (principal); R06.02 Shortness of breath
CPT/HCPCS: 36415; 78452; 93017; 96374; A9500; J2785

== ENCOUNTER → 2025-01-30 14:46 | Outpatient (BNVA) | payer OTHER, SELFPAY | PROVIDERS: PCP Family Medicine; Visit Provider Family Medicine | DX: L30.4 Erythema intertrigo (principal); Z82.49 Family history of ischemic heart disease and other diseases of the circulatory system | CPT/HCPCS: 87070; 87075; 87205 ==